=== PATIENT | male | born 1935 | race Caucasian/White ===

== ENCOUNTER 2020-01-07 11:21 | Inpatient (IN) | payer MEDICARE, OTHER ==
[~2020-01-07] VITALS: Ht 177.8 cm; Wt 121.0 kg
[~2020-01-07 11:21] MED LIST: ALBUAER17; CHOL1CAP50; DIPH25TA26; GLIM2TAB33; NEBI2.5T3; RAMI2.5C33; RANO500T2; TIOTCAP
[2020-01-07] MEDS ORDERED: FUROSEMIDE 40 MG/4 ML VIAL IV ONE (11:30)
[2020-01-07 12:03] LABS: Basophils # (auto) 0.1 10 ^3/uL (0-0.2); Basophils % (auto) 0.7 % (0.0-2.0); Eosinophils # (auto) 0.2 10 ^3/uL (0-0.8); Eosinophils % (auto) 2.7 % (0.0-7.0); Hematocrit 45.1 % (41.0-53.0); Hemoglobin 14.7 g/dL (13.5-17.5); Lymphocytes # (auto) 1.1 10 ^3/uL (0.4-5.4); Lymphocytes % (auto) 14.4 % (10.0-50.0); Mean Corpuscular Hemoglobin 31.8 pg (28.0-32.0); Mean Corpuscular Hgb Conc. 32.5 g/dL (32.0-36.0); Mean Corpuscular Volume 97.9 fL (80.0-100.0); Monocytes # (auto) 0.7 10 ^3/uL (0-1.3); Monocytes % (auto) 8.9 % (0.0-12.0); Neutrophils # (auto) 5.4 10 ^3/uL (1.6-8.6); Neutrophils % (auto) 73.3 % (37.0-80.0); Platelet Count (auto) 162 10^3/uL (140-450); Red Blood Cells 4.61 10^6/uL (4.5-5.90); Red Cell Distribution Width 14.6 % (11.8-14.3); White Blood Cell 7.3 10^3/uL (4.4-10.8)
[2020-01-07 12:18] LABS: Alanine Aminotransferase 22 U/L (16-61); Albumin 3.7 g/dL (3.4-5.0); Anion Gap 3 (5-15); Aspartate Aminotransferase 17 U/L (15-37); Blood Urea Nitrogen 33 mg/dL (7-18); Calcium 9.1 mg/dL (8.5-10.1); Carbon Dioxide 34 mmol/L (21-32); Chloride 100 mmol/L (98-107); GFR African American 58 mL/min; GFR Non-African American 48 mL/min; Glucose 121 mg/dL (74-106); Potassium 4.3 mmol/L (3.5-5.1); Sodium 137 mmol/L (136-145)
[2020-01-07 12:23] LABS: Alkaline Phosphatase 25 U/L (45-117); Bilirubin, Total 0.8 mg/dL (0.2-1.0); Total Protein 7.3 g/dL (6.4-8.2)
[2020-01-07] MEDS ORDERED: ALBUTEROL SULF 2.5 MG/0.5ML(0.5%) NEB SOLN NEB ONE (13:45)
[2020-01-07] MEDS ORDERED: NITROGLYCERIN 0.4 MG SL TAB SL PRN (13:45)
[2020-01-07] MEDS ORDERED: IPRATROPIUM BROM 0.5 MG/2.5ML INH SOL NEB ONE (13:45)
[2020-01-07] MEDS ORDERED: MORPHINE SULF INJ 2 MG/ML SYRINGE 1ML IV PRN (13:45)
[2020-01-07] MEDS ORDERED: DEXTROSE (50%) 50ML SYRG IV PRN (13:45)
[2020-01-07 14:54] VITALS: BP 124/65
--- NOTE | 2020-01-07 14:55 | NUR ---
Telemetry admit from ER KEYON SHAY admitted to Telemetry unit after SBAR received. Patient oriented to Elizabeth Peralta RN primary RN, unit, room, bed, and unit policies regarding patient care and visiting hours. Patient now on continuous telemetry monitoring, tele box #54 and telemetry reading on arrival to unit is SR Patient placed on bedside oxygen at 3LPM via nasal cannula, weighed by bedscale and encouraged to call if they need something. All questions and concerns addressed, patient verbalized understanding. Patient is alert and oriented. SOB with exertion. No reports of pain. Bed is low, locked with 2x side rails up. Call light is within reach. Will continue to monitor Q1hr and PRN.
[2020-01-07 15:01] LABS: Urine Bacteria NONE SEEN /hpf (None Seen); Urine Blood Negative /uL (Negative); Urine Hyaline Cast FEW /lpf (0 - 2); Urine Specific Gravity 1.008 (1.001-1.035); Urine WBC 1 /hpf (0 - 3)
[2020-01-07 15:04] VITALS: BP 124/65
[2020-01-07] MEDS ORDERED: OPTISON 3ml Vial for INJ IV ONE (15:56)
[2020-01-07 17:00] VITALS: BP 122/63
[2020-01-07] MEDS ORDERED: SITA100T7 PO (17:52)
[2020-01-07] MEDS ORDERED: METF-370 PO (17:52)
[2020-01-07] MEDS: ACCU-CHEK COMFORT CURVE STRIP VI SCH (18:00)
[2020-01-07] MEDS: InsuLIN REG 1unit/0.01ml Soln (100units/ml) SC SCH (18:00)
--- NOTE | 2020-01-07 18:34 | NUR ---
RT NOTE PT WAS SEEN BY RT FOR HHN TX. PT TOLERATES WELL VIA MOUTH PIECE. NO ADVERSE REACTION NOTED. CONT ORDERED Addendum: 01/07/20 at 2224 by Jackelyn Lea RT Amended: Links added.
[2020-01-07] MEDS: IPRATROPIUM BROM 0.5 MG/2.5ML INH SOL NEB SCH (18:52)
[2020-01-07] MEDS: ALBUTEROL SULF 2.5 MG/0.5ML(0.5%) NEB SOLN NEB SCH (18:52)
--- NOTE | 2020-01-07 19:30 | NUR ---
Opening Shift Note Assumed care of patient, awake and alert. Patient on O2 at 3 LPM with oxygen saturation of 92%, no complains of pain. Instructed on POC and to call for assist PRN, will continue to monitor for changes Q1hr and PRN.
[2020-01-07] MEDS: ATORVASTATIN 20 MG TAB PO SCH (22:32)
[2020-01-07] MEDS: RANOLAZINE ER 500 MG TAB PO SCH (22:32)
[2020-01-07 23:04] VITALS: BP 113/69
[2020-01-08] MEDS: ACCU-CHEK COMFORT CURVE STRIP VI SCH ×4 (00:06→18:07)
[2020-01-08] MEDS: IPRATROPIUM BROM 0.5 MG/2.5ML INH SOL NEB SCH ×4 (00:52→18:23)
[2020-01-08] MEDS: ALBUTEROL SULF 2.5 MG/0.5ML(0.5%) NEB SOLN NEB SCH ×4 (00:52→18:23)
--- NOTE | 2020-01-08 01:35 | NUR ---
RT NOTE PT PLACED ON HOSPITAL OWNED CPAP # RESPIRATORY 3 WITH MED/LARGE NASAL MASK ON STATED SETTINGS OF APAP 6-15 CMH2O WITH 4L BLEED IN. NO BREAK DOWN NOTED. CPAP AND BEDSIDE POX ARE PLUGGED TO RED OUTLET. PT IS ON BEDSIDE POX #4 PER PROTOCOL. PT APPEARS TO TOLERATE WELL. HUMIDIFIER IS FILLED TO FILL LINE AND SET TO 1. PT AWARE TO CALL IF ANY CHANGES NEEDED OR CONCERNS Addendum: 01/08/20 at 0147 by Jackelyn Lea RT Amended: Links added.
--- NOTE | 2020-01-08 02:25 | NUR ---
RT NOTE ROUTINE CPAP CHECK DONE, PT IS ON HOSPITAL OWNED CPAP # RESPIRATORY 3 WITH MED/LARGE NASAL MASK ON STATED SETTINGS OF APAP 6-15 CMH2O WITH 4L BLEED IN. CPAP AND BEDSIDE POX ARE PLUGGED TO RED OUTLET. PT IS ON BEDSIDE POX #4 PER PROTOCOL. PT APPEARS TO TOLERATE WELL. HUMIDIFIER IS ADEQUATE AND SET TO 1. PT AWARE TO CALL IF ANY CHANGES NEEDED OR CONCERNS Addendum: 01/08/20 at 0258 by Jackelyn Lea RT Amended: Links added.
[2020-01-08 05:54] VITALS: BP 104/59
[2020-01-08] MEDS: InsuLIN REG 1unit/0.01ml Soln (100units/ml) SC SCH ×4 (06:46→18:00)
--- NOTE | 2020-01-08 07:28 | NUR ---
Opening Shift Note Assumed care of patient, awake and alert. Patient on O2 at 3 LPM with oxygen saturation of 96%, denies SOB, no complains of pain at this time. Instructed on POC and to call for assist PRN, Bed in low and locked position. will continue to monitor for changes Q1hr and PRN.
[2020-01-08 08:12] LABS: Calcium 9.3 mg/dL (8.5-10.1); Potassium 4.4 mmol/L (3.5-5.1)
[2020-01-08 08:15] LABS: BUN/Creatinine Ratio 23.7
[2020-01-08 09:00] VITALS: BP 106/54
[2020-01-08] MEDS: POTASSIUM CHL 10 Meq TABLET PO SCH (09:55)
[2020-01-08] MEDS: RANOLAZINE ER 500 MG TAB PO SCH ×2 (09:55→22:06)
[2020-01-08] MEDS: ASPirin 81 mg TAB PO SCH (09:55)
[2020-01-08] MEDS ORDERED: FUROSEMIDE 40 MG/4 ML VIAL IV SCH (10:00)
[2020-01-08] MEDS: BYSTOLIC 2.5 MG PO SCH (10:00)
[2020-01-08] MEDS: RAMIPRIL 2.5 MG CAP PO SCH (10:03)
[2020-01-08] MEDS: PANTOPRAZOLE 40 MG TAB PO SCH (10:04)
[2020-01-08] MEDS: ENOXAPARIN SOD 40 MG/0.4 ML SYRINGE SC SCH (10:05)
[2020-01-08 13:00] VITALS: BP 139/64
[2020-01-08 16:51] VITALS: BP 90/39
[2020-01-08] MEDS: SPIRONOLACTONE 25 MG TAB PO SCH (18:01)
[2020-01-08] MEDS: FUROSEMIDE 40 MG/4 ML VIAL IV SCH (18:07)
--- NOTE | 2020-01-08 18:26 | NUR ---
RT NOTE PT WAS SEEN BY RT FOR HHN TX. PT TOLERATES WELL VIA MOUTHPIECE. NO ADVERSE REACTION NOTED. CONT ORDERED Addendum: 01/08/20 at 1935 by Jackelyn Lea RT Amended: Links added.
--- NOTE | 2020-01-08 19:30 | NUR ---
Opening Shift Note Assumed care of patient, awake and alert. No S/S of distress/SOB or pain. Safety measures in place, bed in lowest position, bed rails raised x2, call light within reach. Instructed on POC and to call for assist PRN, will continue to monitor for changes Q1hr and PRN.
--- NOTE | 2020-01-08 22:00 | NUR ---
RT NOTE PT PLACED ON HOSPITAL OWNED CPAP # RESPIRATORY 3 WITH MED/LARGE NASAL MASK ON STATED SETTINGS OF APAP 6-15 CMH2O WITH 4L BLEED IN. NO BREAK DOWN NOTED. CPAP AND BEDSIDE POX ARE PLUGGED TO RED OUTLET. PT IS ON BEDSIDE POX #4 PER PROTOCOL. PT APPEARS TO TOLERATE WELL. HUMIDIFIER IS FILLED TO FILL LINE AND SET TO 1. PT AWARE TO CALL IF ANY CHANGES NEEDED OR CONCERNS Addendum: 01/08/20 at 4623 by Jackelyn Lea RT Amended: Links added.
[2020-01-08] MEDS: ATORVASTATIN 20 MG TAB PO SCH (22:06)
[2020-01-09] MEDS: ACCU-CHEK COMFORT CURVE STRIP VI SCH ×5 (00:12→23:39)
--- NOTE | 2020-01-09 00:20 | NUR ---
RT NOTE ROUTINE CPAP CHECK DONE. PT IS ON HOSPITAL OWNED CPAP # RESPIRATORY 3 WITH MED/LARGE NASAL MASK ON STATED SETTINGS OF APAP 6-15 CMH2O WITH 4L BLEED IN. NO BREAK DOWN NOTED. CPAP AND BEDSIDE POX ARE PLUGGED TO RED OUTLET. PT IS ON BEDSIDE POX #4 PER PROTOCOL. PT APPEARS TO TOLERATE WELL. HUMIDIFIER IS ADEQUATE AND SET TO 1. INLINE HHN TX GIVEN WITH 2.5 MG ALBUTEROL AND 0.5 MG ATROVENT WITHOUT ADVERSE REACTION NOTED. PT AWARE TO CALL IF ANY CHANGES NEEDED OR CONCERNS Addendum: 01/09/20 at 0054 by Jackelyn Lea RT Amended: Links added.
[2020-01-09] MEDS: ALBUTEROL SULF 2.5 MG/0.5ML(0.5%) NEB SOLN NEB SCH ×4 (00:23→19:45)
[2020-01-09] MEDS: IPRATROPIUM BROM 0.5 MG/2.5ML INH SOL NEB SCH ×4 (00:23→19:45)
--- NOTE | 2020-01-09 02:12 | NUR ---
RT NOTE ROUTINE CPAP CHECK DONE. PT IS ON HOSPITAL OWNED CPAP # RESPIRATORY 3 WITH MED/LARGE NASAL MASK ON STATED SETTINGS OF APAP 6-15 CMH2O WITH 4L BLEED IN. NO BREAK DOWN NOTED. CPAP AND BEDSIDE POX ARE PLUGGED TO RED OUTLET. PT IS ON BEDSIDE POX #4 PER PROTOCOL. PT APPEARS TO TOLERATE WELL. HUMIDIFIER IS ADEQUATE AND SET TO 1. Addendum: 01/09/20 at 0233 by Jackelyn Lea RT Amended: Links added.
[2020-01-09 05:00] VITALS: BP 99/58
[2020-01-09] MEDS: InsuLIN REG 1unit/0.01ml Soln (100units/ml) SC SCH ×5 (05:35→23:39)
[2020-01-09] MEDS: SPIRONOLACTONE 25 MG TAB PO SCH ×2 (05:42→17:55)
[2020-01-09] MEDS: FUROSEMIDE 40 MG/4 ML VIAL IV SCH ×2 (05:44→17:55)
--- NOTE | 2020-01-09 07:30 | NUR ---
Opening Shift Note Assumed care of patient, who is alert and oriented x4. On oxygen at 3LPM via nasal cannula with O2 saturations at 95%. No S/S of distress/SOB or pain. Noted +2 pitting edema to BLE. Bed is low, locked with 2x side rails up. Call light is within reach. Instructed on POC and to call for assist PRN, will continue to monitor for changes Q1hr and PRN.
[2020-01-09 07:41] LABS: Basophils # (auto) 0.1 10 ^3/uL (0-0.2); Basophils % (auto) 1.1 % (0.0-2.0); Eosinophils # (auto) 0.2 10 ^3/uL (0-0.8); Eosinophils % (auto) 3.6 % (0.0-7.0); Hematocrit 43.9 % (41.0-53.0); Hemoglobin 14.1 g/dL (13.5-17.5); Lymphocytes # (auto) 1.3 10 ^3/uL (0.4-5.4); Mean Corpuscular Hemoglobin 31.4 pg (28.0-32.0); Mean Corpuscular Hgb Conc. 32.1 g/dL (32.0-36.0); Mean Corpuscular Volume 97.9 fL (80.0-100.0); Monocytes # (auto) 0.6 10 ^3/uL (0-1.3); Monocytes % (auto) 8.8 % (0.0-12.0); Neutrophils # (auto) 4.2 10 ^3/uL (1.6-8.6); Neutrophils % (auto) 66.5 % (37.0-80.0); Nucleated Red Blood Cells % 0.1 %; Platelet Count (auto) 148 10^3/uL (140-450); Red Blood Cells 4.49 10^6/uL (4.5-5.90); Red Cell Distribution Width 14.6 % (11.8-14.3); White Blood Cell 6.4 10^3/uL (4.4-10.8)
[2020-01-09 08:13] LABS: Anion Gap 3 (5-15); Blood Urea Nitrogen 34 mg/dL (7-18); Calcium 9.5 mg/dL (8.5-10.1); Carbon Dioxide 36 mmol/L (21-32); Chloride 99 mmol/L (98-107); Glucose 113 mg/dL (74-106); Potassium 3.9 mmol/L (3.5-5.1); Sodium 138 mmol/L (136-145)
[2020-01-09 08:20] LABS: GFR African American 65 mL/min; GFR Non-African American 53 mL/min
[2020-01-09 08:45] VITALS: BP 101/56
[2020-01-09] MEDS: ENOXAPARIN SOD 40 MG/0.4 ML SYRINGE SC SCH (09:28)
[2020-01-09] MEDS: ASPirin 81 mg TAB PO SCH (09:29)
[2020-01-09] MEDS: RANOLAZINE ER 500 MG TAB PO SCH ×2 (09:29→21:28)
[2020-01-09] MEDS: DOCUSATE SOD 100 MG CAP PO SCH ×2 (09:29→21:28)
[2020-01-09] MEDS: POTASSIUM CHL 10 Meq TABLET PO SCH (09:29)
[2020-01-09] MEDS: PANTOPRAZOLE 40 MG TAB PO SCH (09:29)
[2020-01-09] MEDS: BYSTOLIC 2.5 MG PO SCH (09:30)
[2020-01-09] MEDS: RAMIPRIL 2.5 MG CAP PO SCH (09:30)
[2020-01-09 13:00] VITALS: BP 105/66
[2020-01-09 16:39] VITALS: BP 109/65
--- NOTE | 2020-01-09 17:02 | NUR ---
Dr. Lu Rounding Updating patient on POC. Patient's concerns addressed at this time. PT evaluation to be done before discharge planning to take place. Orders read back and verified. Will continue to monitor
--- NOTE | 2020-01-09 19:30 | NUR ---
Opening Shift Note Assumed care of patient, awake and alert. No S/S of distress/SOB or pain. Instructed on POC and to call for assist PRN, will continue to monitor for changes Q1hr and PRN.
[2020-01-09] MEDS: ATORVASTATIN 20 MG TAB PO SCH (21:28)
[2020-01-09] MEDS: SENNA 8.6 MG TAB PO SCH (21:29)
[2020-01-09 21:43] VITALS: BP 108/59
[2020-01-10 05:00] VITALS: BP 109/67
[2020-01-10] MEDS: InsuLIN REG 1unit/0.01ml Soln (100units/ml) SC SCH ×3 (05:42→18:12)
[2020-01-10] MEDS: ACCU-CHEK COMFORT CURVE STRIP VI SCH ×3 (05:42→18:12)
[2020-01-10] MEDS: FUROSEMIDE 40 MG/4 ML VIAL IV SCH ×2 (06:19→18:03)
[2020-01-10] MEDS: SPIRONOLACTONE 25 MG TAB PO SCH ×2 (06:20→18:04)
[2020-01-10 06:32] LABS: Basophils # (auto) 0 10 ^3/uL (0-0.2); Basophils % (auto) 0.5 % (0.0-2.0); Eosinophils # (auto) 0.3 10 ^3/uL (0-0.8); Eosinophils % (auto) 4.1 % (0.0-7.0); Hematocrit 41.3 % (41.0-53.0); Hemoglobin 13.5 g/dL (13.5-17.5); Lymphocytes # (auto) 1.7 10 ^3/uL (0.4-5.4); Lymphocytes % (auto) 23.7 % (10.0-50.0); Mean Corpuscular Hemoglobin 31.7 pg (28.0-32.0); Mean Corpuscular Hgb Conc. 32.5 g/dL (32.0-36.0); Mean Corpuscular Volume 97.5 fL (80.0-100.0); Monocytes # (auto) 0.8 10 ^3/uL (0-1.3); Monocytes % (auto) 11.1 % (0.0-12.0); Neutrophils # (auto) 4.3 10 ^3/uL (1.6-8.6); Neutrophils % (auto) 60.6 % (37.0-80.0); Platelet Count (auto) 155 10^3/uL (140-450); Red Blood Cells 4.24 10^6/uL (4.5-5.90); Red Cell Distribution Width 14.3 % (11.8-14.3)
[2020-01-10 06:41] LABS: BUN/Creatinine Ratio 24.5; Potassium 4.2 mmol/L (3.5-5.1)
--- NOTE | 2020-01-10 07:10 | NUR ---
Opening Shift Note Assumed care of patient, who is alert and oriented x4. On oxygen at 3LPM via nasal cannula. No S/S of distress/SOB or pain. Bed is low, locked with 2x side rails up. Call light is within reach. Instructed on POC and to call for assist PRN, will continue to monitor for changes Q1hr and PRN.
[2020-01-10] MEDS: IPRATROPIUM BROM 0.5 MG/2.5ML INH SOL NEB SCH ×4 (08:06→23:50)
[2020-01-10] MEDS: ALBUTEROL SULF 2.5 MG/0.5ML(0.5%) NEB SOLN NEB SCH ×4 (08:06→23:50)
[2020-01-10 08:46] VITALS: BP 110/58
[2020-01-10] MEDS: POTASSIUM CHL 10 Meq TABLET PO SCH (09:57)
[2020-01-10] MEDS: ASPirin 81 mg TAB PO SCH (09:57)
[2020-01-10] MEDS: BYSTOLIC 2.5 MG PO SCH (09:57)
[2020-01-10] MEDS: DOCUSATE SOD 100 MG CAP PO SCH ×2 (09:57→21:55)
[2020-01-10] MEDS: RANOLAZINE ER 500 MG TAB PO SCH ×2 (09:58→21:55)
[2020-01-10] MEDS: ENOXAPARIN SOD 40 MG/0.4 ML SYRINGE SC SCH (09:58)
[2020-01-10] MEDS: PANTOPRAZOLE 40 MG TAB PO SCH (09:58)
[2020-01-10] MEDS: RAMIPRIL 2.5 MG CAP PO SCH (09:59)
[2020-01-10 13:00] VITALS: BP 92/52
--- NOTE | 2020-01-10 14:34 | NUR ---
Est energy needs [id number] kcal (25-27 kcal/kg IBW 75.5kg) Est protein needs 73-91g (0.6-0.75g/kg BW 121kg, r/t elevated RFTs) will reassess prn. Addendum: 01/10/20 at [address] Amended: Links added.
--- NOTE | 2020-01-10 14:54 | NUR ---
Physical Therapy Patient ambulating in the hallway with Ga (PT). Patient is ambulating with walker and oxygen.
[2020-01-10 15:11] VITALS: BP 92/52
[2020-01-10 16:46] VITALS: BP 103/59
--- NOTE | 2020-01-10 16:55 | NUR ---
Dr. Lu rounding Discussing POC with patient. Per Dr. Lu, patient to be discharged tomorrow.
--- NOTE | 2020-01-10 19:35 | NUR ---
Opening Shift Note Assumed care of patient, awake and alert. No S/S of distress/SOB or pain. Instructed on POC and to call for assist PRN, patient verbalized understanding. Safety precaution in place, call light within reach, will continue to monitor for changes Q1hr and PRN.
[2020-01-10] MEDS: ATORVASTATIN 20 MG TAB PO SCH (21:55)
[2020-01-10] MEDS: SENNA 8.6 MG TAB PO SCH (21:55)
[2020-01-10 22:00] VITALS: BP 107/61
[2020-01-11] MEDS: ACCU-CHEK COMFORT CURVE STRIP VI SCH ×5 (00:13→23:04)
[2020-01-11 05:00] VITALS: BP 109/55
[2020-01-11] MEDS: InsuLIN REG 1unit/0.01ml Soln (100units/ml) SC SCH ×5 (06:00→23:04)
[2020-01-11] MEDS: FUROSEMIDE 40 MG/4 ML VIAL IV SCH ×2 (06:09→18:11)
[2020-01-11] MEDS: SPIRONOLACTONE 25 MG TAB PO SCH ×2 (06:09→18:11)
[2020-01-11 06:46] LABS: Basophils # (auto) 0.1 10 ^3/uL (0-0.2); Eosinophils # (auto) 0.3 10 ^3/uL (0-0.8); Eosinophils % (auto) 3.5 % (0.0-7.0); Hemoglobin 14.8 g/dL (13.5-17.5); Lymphocytes # (auto) 1.8 10 ^3/uL (0.4-5.4); Lymphocytes % (auto) 23.8 % (10.0-50.0); Mean Corpuscular Hgb Conc. 32.9 g/dL (32.0-36.0); Mean Corpuscular Volume 97.2 fL (80.0-100.0); Monocytes # (auto) 0.8 10 ^3/uL (0-1.3); Monocytes % (auto) 10.8 % (0.0-12.0); Neutrophils # (auto) 4.5 10 ^3/uL (1.6-8.6); Neutrophils % (auto) 60.9 % (37.0-80.0); Nucleated Red Blood Cells % 0.1 %; Platelet Count (auto) 164 10^3/uL (140-450); Red Blood Cells 4.63 10^6/uL (4.5-5.90); Red Cell Distribution Width 14.2 % (11.8-14.3); White Blood Cell 7.4 10^3/uL (4.4-10.8)
--- NOTE | 2020-01-11 07:12 | NUR ---
OPENING SHIFT NOTE Assumed care of patient from shift nurse manager RN. Patient is alert and oriented x4, no signs of distress noted, patient denies pain. Patient was updated on the plan of care and verbalized understanding. He is receiving oxygen at 3l/min via nasal canula, saturation 95%. Bed is locked, in the lowest position, side rails up x2 and call light is in reach. Patient was encouraged to call for assistance as needed.
[2020-01-11 07:13] LABS: Calcium 9.7 mg/dL (8.5-10.1); Potassium 4.4 mmol/L (3.5-5.1)
[2020-01-11 07:17] LABS: BUN/Creatinine Ratio 21.9
[2020-01-11] MEDS: ALBUTEROL SULF 2.5 MG/0.5ML(0.5%) NEB SOLN NEB SCH ×3 (07:40→19:27)
[2020-01-11] MEDS: IPRATROPIUM BROM 0.5 MG/2.5ML INH SOL NEB SCH ×3 (07:40→19:27)
[2020-01-11 09:00] VITALS: BP 106/73
[2020-01-11] MEDS: ASPirin 81 mg TAB PO SCH (09:50)
[2020-01-11] MEDS: DOCUSATE SOD 100 MG CAP PO SCH ×2 (09:51→21:34)
[2020-01-11] MEDS: RAMIPRIL 2.5 MG CAP PO SCH (09:51)
[2020-01-11] MEDS: ENOXAPARIN SOD 40 MG/0.4 ML SYRINGE SC SCH (09:52)
[2020-01-11] MEDS: RANOLAZINE ER 500 MG TAB PO SCH ×2 (09:52→21:34)
[2020-01-11] MEDS: POTASSIUM CHL 10 Meq TABLET PO SCH (09:52)
[2020-01-11] MEDS: PANTOPRAZOLE 40 MG TAB PO SCH (09:52)
[2020-01-11] MEDS: BYSTOLIC 2.5 MG PO SCH (09:53)
[2020-01-11 13:00] VITALS: BP 107/64
--- NOTE | 2020-01-11 14:50 | NUR ---
DORITA AT BEDSIDE updated on the patient status. Plan of care was discussed with the patient and he verbalized understanding. No new orders received.
--- NOTE | 2020-01-11 16:47 | NUR ---
LUIS AT BEDSIDE Updated on patient status, plan of care discussed with the patient and he verbalized understanding. Luis to order [employer] Life vest.
[2020-01-11 17:00] VITALS: BP 113/64
--- NOTE | 2020-01-11 17:05 | NUR ---
CALL FROM ADRIANA Sanchez called for [employer] life vest. Will fax order, h+p, face sheet, echo report and consultation to .
--- NOTE | 2020-01-11 17:45 | NUR ---
FAX SENT TO [employer]
--- NOTE | 2020-01-11 19:10 | NUR ---
Opening Shift Note Assumed care of patient, awake and alert. No S/S of distress/SOB or pain. Respirations clear, equal and unlabored. Instructed on POC and to call for assist PRN, will continue to monitor for changes Q1hr and PRN. Bed locked in lowest position, HOB elevated at least 30 degrees, side rails up x 2 and call light is within each.
[2020-01-11] MEDS: SENNA 8.6 MG TAB PO SCH (21:28)
[2020-01-11] MEDS: CARVEDILOL 3.125 MG TAB PO SCH (21:28)
[2020-01-11] MEDS: ATORVASTATIN 20 MG TAB PO SCH (21:30)
[2020-01-11 22:00] VITALS: BP 129/72
[2020-01-12] MEDS: IPRATROPIUM BROM 0.5 MG/2.5ML INH SOL NEB SCH ×5 (00:26→19:12)
[2020-01-12] MEDS: ALBUTEROL SULF 2.5 MG/0.5ML(0.5%) NEB SOLN NEB SCH ×5 (00:26→19:12)
[2020-01-12] MEDS: FUROSEMIDE 40 MG/4 ML VIAL IV SCH ×2 (05:17→17:38)
[2020-01-12] MEDS: SPIRONOLACTONE 25 MG TAB PO SCH ×2 (05:18→17:38)
[2020-01-12] MEDS: ACCU-CHEK COMFORT CURVE STRIP VI SCH ×4 (05:43→23:48)
[2020-01-12] MEDS: InsuLIN REG 1unit/0.01ml Soln (100units/ml) SC SCH ×4 (05:43→23:49)
[2020-01-12 05:46] VITALS: BP 100/60
[2020-01-12 05:53] LABS: Basophils # (auto) 0 10 ^3/uL (0-0.2); Basophils % (auto) 0.6 % (0.0-2.0); Eosinophils # (auto) 0.3 10 ^3/uL (0-0.8); Eosinophils % (auto) 4.2 % (0.0-7.0); Hematocrit 42.4 % (41.0-53.0); Hemoglobin 14.1 g/dL (13.5-17.5); Lymphocytes # (auto) 1.6 10 ^3/uL (0.4-5.4); Lymphocytes % (auto) 22.3 % (10.0-50.0); Mean Corpuscular Hemoglobin 32.2 pg (28.0-32.0); Mean Corpuscular Hgb Conc. 33.3 g/dL (32.0-36.0); Mean Corpuscular Volume 96.6 fL (80.0-100.0); Monocytes # (auto) 0.8 10 ^3/uL (0-1.3); Monocytes % (auto) 11.6 % (0.0-12.0); Neutrophils # (auto) 4.3 10 ^3/uL (1.6-8.6); Neutrophils % (auto) 61.3 % (37.0-80.0); Nucleated Red Blood Cells % 0.1 %; Platelet Count (auto) 161 10^3/uL (140-450); Red Blood Cells 4.38 10^6/uL (4.5-5.90); Red Cell Distribution Width 14.5 % (11.8-14.3)
[2020-01-12 06:07] LABS: INR 1.29 (0.9-1.15)
[2020-01-12 06:09] LABS: Calcium 9.6 mg/dL (8.5-10.1)
[2020-01-12 06:12] LABS: BUN/Creatinine Ratio 24.1
--- NOTE | 2020-01-12 07:26 | NUR ---
CLOSING SHIFT NOTE ENDORSED CARE TO DAY SHIFT RN
[2020-01-12 08:00] VITALS: BP 102/57
[2020-01-12 09:00] VITALS: BP 102/57
[2020-01-12] MEDS: ASPirin 81 mg TAB PO SCH (09:49)
[2020-01-12] MEDS: CARVEDILOL 3.125 MG TAB PO SCH ×2 (09:50→21:40)
[2020-01-12] MEDS: BYSTOLIC 2.5 MG PO SCH (09:50)
[2020-01-12] MEDS: DOCUSATE SOD 100 MG CAP PO SCH ×2 (09:50→21:39)
[2020-01-12] MEDS: PANTOPRAZOLE 40 MG TAB PO SCH (09:51)
[2020-01-12] MEDS: POTASSIUM CHL 10 Meq TABLET PO SCH (09:51)
[2020-01-12] MEDS: ENOXAPARIN SOD 40 MG/0.4 ML SYRINGE SC SCH (09:52)
[2020-01-12] MEDS: RANOLAZINE ER 500 MG TAB PO SCH ×2 (09:52→21:40)
[2020-01-12 13:00] VITALS: BP 123/60
[2020-01-12 17:00] VITALS: BP 99/56
[2020-01-12] MEDS: SACUBITRIL-VALSARTAN 24mg/26mg TAB PO SCH (21:40)
[2020-01-12] MEDS: ATORVASTATIN 20 MG TAB PO SCH (21:40)
[2020-01-12] MEDS: SENNA 8.6 MG TAB PO SCH (21:41)
[2020-01-12 22:00] VITALS: BP 118/59
--- NOTE | 2020-01-12 23:09 | NUR ---
1899 OBTAINED REPORT AND ASSUMED CARE. PATIENT MET IN HIS ROOM SITTING N HIS BED. DENIED PAIN. 2139. LIVE VEST BROUGHT TO HIS ROOM BY A CORRECTIONAL SUPERVISOR DEMONSTRATED TO PATIENT HOW TO WEAR THE VEST AND AND USE IT. PATIENT VERBALIZED UNDERSTANDING. HE HAS THE VEST ON AT THIS TIME RECOMMENDED..
[2020-01-13] MEDS: ALBUTEROL SULF 2.5 MG/0.5ML(0.5%) NEB SOLN NEB SCH ×2 (01:10→12:30)
[2020-01-13] MEDS: IPRATROPIUM BROM 0.5 MG/2.5ML INH SOL NEB SCH ×2 (01:10→12:30)
--- NOTE | 2020-01-13 04:09 | NUR ---
PATIENT SLEEPING AT THIS TIME.
[2020-01-13 05:00] VITALS: BP 96/55
[2020-01-13] MEDS: InsuLIN REG 1unit/0.01ml Soln (100units/ml) SC SCH (05:48)
[2020-01-13] MEDS: FUROSEMIDE 40 MG/4 ML VIAL IV SCH (05:48)
[2020-01-13] MEDS: SPIRONOLACTONE 25 MG TAB PO SCH (05:48)
[2020-01-13] MEDS: ACCU-CHEK COMFORT CURVE STRIP VI SCH (05:48)
--- NOTE | 2020-01-13 07:09 | NUR ---
Respiratory note: Received pt from [employer] shift supervisor RT, pt already off CPAP. Pt said he took it off a few minutes ago. HR 83, RR 18, SPO2 96% on 3lpm nasal cannula. Scheduled 0600 medneb tx administered at this time, with no adverse reactions. No s/s of distress noted. Pt aware to call for RT if needed.
[2020-01-13 07:30] LABS: Basophils # (auto) 0.1 10 ^3/uL (0-0.2); Basophils % (auto) 0.8 % (0.0-2.0); Eosinophils # (auto) 0.3 10 ^3/uL (0-0.8); Eosinophils % (auto) 3.4 % (0.0-7.0); Hemoglobin 14.4 g/dL (13.5-17.5); Lymphocytes # (auto) 1.7 10 ^3/uL (0.4-5.4); Lymphocytes % (auto) 17.7 % (10.0-50.0); Mean Corpuscular Hemoglobin 31.5 pg (28.0-32.0); Mean Corpuscular Hgb Conc. 32.7 g/dL (32.0-36.0); Mean Corpuscular Volume 96.6 fL (80.0-100.0); Monocytes # (auto) 1.1 10 ^3/uL (0-1.3); Monocytes % (auto) 11.2 % (0.0-12.0); Neutrophils # (auto) 6.3 10 ^3/uL (1.6-8.6); Neutrophils % (auto) 66.9 % (37.0-80.0); Platelet Count (auto) 186 10^3/uL (140-450); Red Blood Cells 4.56 10^6/uL (4.5-5.90); Red Cell Distribution Width 14.3 % (11.8-14.3); White Blood Cell 9.4 10^3/uL (4.4-10.8)
--- NOTE | 2020-01-13 07:40 | NUR ---
Opening Note Assumed pt care from NOC RN. Pt is a/ox4 with no s/s of distress or SOB. Pt is currently sitting upright in bed with no complaints at this time. Pt is currently on 2L via NC. Pt currently has Zoll Vest on. Discussed POC with pt; pt verbalized understanding. Safety measures maintained with call light within reach, bed in lowest position and side rails up. Will continue to monitor for changes.
[2020-01-13 07:44] LABS: BUN/Creatinine Ratio 24.2; Calcium 9.4 mg/dL (8.5-10.1)
[2020-01-13 08:41] VITALS: BP 105/45
[2020-01-13] MEDS: SACUBITRIL-VALSARTAN 24mg/26mg TAB PO SCH (09:10)
[2020-01-13] MEDS: POTASSIUM CHL 10 Meq TABLET PO SCH (09:10)
[2020-01-13] MEDS: ASPirin 81 mg TAB PO SCH (09:10)
[2020-01-13] MEDS: DOCUSATE SOD 100 MG CAP PO SCH (09:10)
[2020-01-13] MEDS: PANTOPRAZOLE 40 MG TAB PO SCH (09:10)
[2020-01-13] MEDS: RANOLAZINE ER 500 MG TAB PO SCH (09:10)
[2020-01-13] MEDS: ENOXAPARIN SOD 40 MG/0.4 ML SYRINGE SC SCH (09:11)
[2020-01-13] MEDS: BYSTOLIC 2.5 MG PO SCH (09:12)
[2020-01-13] MEDS: CARVEDILOL 3.125 MG TAB PO SCH (09:12)
--- NOTE | 2020-01-13 10:05 | NUR ---
Dr Lu at Bedside MD to see pt. Plans to d/c pt home today. Will implement and continue to monitor.
--- NOTE | 2020-01-13 10:24 | NUR ---
Called in New Prescriptions Called [facility] on [address], . Three total prescriptions called in.
[2020-01-13 10:28] VITALS: BP 105/45
[2020-01-13 10:56] VITALS: BP 105/45
--- NOTE | 2020-01-13 11:04 | NUR ---
IV and tele box discontinued IV on patients left forearm discontinued, catheter was removed fully intact, site asymptomatic, dressing applied to site Tele box #54 removed and sent back to ICU staff made aware Signed: 01/13/20 at 1108 by RAMESH CORONEL <Co-Signature Required> Co-Signed: 01/13/20 at 1108 by EWA MEADOWS RN RN
--- NOTE | 2020-01-13 12:00 | NUR ---
Pt D/C'ed Off Unit Pt d/c'ed off unit via wheelchair. Pt is a/ox4 with no s/s of distress or SOB. Pt provided all education material, prescriptions, all questions were answered and pt took all belongings. IV and tele box were d/c'ed prior to d/c.
--- NOTE | 2020-01-13 13:00 | NUR ---
assessment Patient discharged home prior to being assessed. Addendum: 01/13/20 at 1501 by Nohemy BARGER Amended: Links added.
== END 2020-01-13 12:06 | disposition home or self-care (01) | DRG 291 ==
LOC: ER 11:21 → EDBD 11:21 → TELE-WESTW 11:22
PROVIDERS: ADMIT Internal Medicine; ATTEND Internal Medicine
PROC: 5A09357 Assistance with Respiratory Ventilation, Less than 24 Consecutive Hours, Continuous Positive Airway Pressure (ICD-10-PCS; principal; 2020-01-08)
PROC: 5A09357 Assistance with Respiratory Ventilation, Less than 24 Consecutive Hours, Continuous Positive Airway Pressure (ICD-10-PCS; 2020-01-09)
PROC: 5A09357 Assistance with Respiratory Ventilation, Less than 24 Consecutive Hours, Continuous Positive Airway Pressure (ICD-10-PCS; 2020-01-10)
PROC: 5A09357 Assistance with Respiratory Ventilation, Less than 24 Consecutive Hours, Continuous Positive Airway Pressure (ICD-10-PCS; 2020-01-11)
PROC: 5A09357 Assistance with Respiratory Ventilation, Less than 24 Consecutive Hours, Continuous Positive Airway Pressure (ICD-10-PCS; 2020-01-12)
PROC: 5A09357 Assistance with Respiratory Ventilation, Less than 24 Consecutive Hours, Continuous Positive Airway Pressure (ICD-10-PCS; 2020-01-13)
DX: I13.0 Hypertensive heart and chronic kidney disease with heart failure and stage 1 through stage 4 chronic kidney disease, or unspecified chronic kidney disease (principal); I50.43 Acute on chronic combined systolic (congestive) and diastolic (congestive) heart failure; N17.0 Acute kidney failure with tubular necrosis; L03.115 Cellulitis of right lower limb; J96.11 Chronic respiratory failure with hypoxia; J44.9 Chronic obstructive pulmonary disease, unspecified; N18.3 Chronic kidney disease, stage 3 (moderate); E66.01 Morbid (severe) obesity due to excess calories; I25.10 Atherosclerotic heart disease of native coronary artery without angina pectoris; E11.22 Type 2 diabetes mellitus with diabetic chronic kidney disease; E11.21 Type 2 diabetes mellitus with diabetic nephropathy; E78.5 Hyperlipidemia, unspecified; I25.2 Old myocardial infarction; Z79.84 Long term (current) use of oral hypoglycemic drugs; Z79.899 Other long term (current) drug therapy; Z83.3 Family history of diabetes mellitus; Z95.1 Presence of aortocoronary bypass graft; Z95.5 Presence of coronary angioplasty implant and graft; Z99.81 Dependence on supplemental oxygen; Z88.0 Allergy status to penicillin; Z88.8 Allergy status to other drugs, medicaments and biological substances; Z68.39 Body mass index [BMI] 39.0-39.9, adult
CPT/HCPCS: 36415; 71045; 74176; 80048; 80053; 81001; 82962; 83036; 83880; 84443; 84484; 85025; 85610; 93005; 93306; 94640; 94660; 96374; G0378; J1815; Q9956

== ENCOUNTER 2020-08-19 20:03 | Inpatient (IN) | payer MEDICARE, OTHER ==
[~2020-08-19] VITALS: Ht 182.9 cm; Wt 123.8 kg
[~2020-08-19 20:03] MED LIST changes: +METF-370 PO; +SITA100T7 PO
[2020-08-19] MEDS ORDERED: ASPirin 81 mg TAB PO ONE (20:30)
[2020-08-19 20:44] LABS: Basophils # (auto) 0.1 10 ^3/uL (0-0.2); Basophils % (auto) 1.4 % (0.0-2.0); Eosinophils # (auto) 0.4 10 ^3/uL (0-0.8); Eosinophils % (auto) 4.6 % (0.0-7.0); Hematocrit 40.3 % (41.0-53.0); Hemoglobin 13.4 g/dL (13.5-17.5); Lymphocytes # (auto) 1.8 10 ^3/uL (0.4-5.4); Lymphocytes % (auto) 19.6 % (10.0-50.0); Mean Corpuscular Hgb Conc. 33.4 g/dL (32.0-36.0); Mean Corpuscular Volume 99.1 fL (80.0-100.0); Monocytes # (auto) 0.7 10 ^3/uL (0-1.3); Monocytes % (auto) 7.9 % (0.0-12.0); Neutrophils % (auto) 66.5 % (37.0-80.0); Red Blood Cells 4.07 10^6/uL (4.5-5.90); Red Cell Distribution Width 13.3 % (11.8-14.3)
[2020-08-19 20:58] LABS: Albumin 3.8 g/dL (3.4-5.0); Anion Gap 4 (5-15); Aspartate Aminotransferase 21 U/L (15-37); BUN/Creatinine Ratio 26.9; Blood Urea Nitrogen 49 mg/dL (7-18); Calcium 9.4 mg/dL (8.5-10.1); Carbon Dioxide 30 mmol/L (21-32); Chloride 101 mmol/L (98-107); GFR African American 46 mL/min; GFR Non-African American 38 mL/min; Glucose 121 mg/dL (74-106); Magnesium 2.4 mg/dL (1.6-2.6); Potassium 4.6 mmol/L (3.5-5.1); Sodium 135 mmol/L (136-145)
[2020-08-19 21:00] LABS: INR 1.1 (0.9-1.15); Partial Thromboplastin Time 27.3 sec (23.0-31.2)
[2020-08-19 21:03] LABS: Alanine Aminotransferase 29 U/L (16-61); Alkaline Phosphatase 26 U/L (45-117); Bilirubin, Total 0.3 mg/dL (0.2-1.0); Total Protein 7.3 g/dL (6.4-8.2)
[2020-08-20] VITALS (9 sets, daily range): BP systolic 90–117; BP diastolic 30–58
[2020-08-20] MEDS ORDERED: ACETAMINOPHEN 325 MG TAB PO PRN (02:15)
[2020-08-20] MEDS ORDERED: NITROGLYCERIN 0.4 MG SL TAB SL PRN (02:15)
[2020-08-20] MEDS ORDERED: ONDANSETRON HCL 4 MG/2 ML VIAL IV PRN (02:15)
[2020-08-20] MEDS ORDERED: DOCUSATE SOD 100 MG CAP PO PRN (02:15)
[2020-08-20] MEDS ORDERED: DEXTROSE (50%) 50ML SYRG IV PRN (02:15)
[2020-08-20] MEDS ORDERED: MORPHINE SULFATE INJECTION 2 MG/ML SYRG IV PRN (02:15)
[2020-08-20] MEDS: MORPHINE SULFATE 4 MG/ML SYR/VIAL IV PRN ×3 (05:50→19:41)
[2020-08-20] MEDS ORDERED: GLIM2TAB33 PO (06:20)
[2020-08-20] MEDS ORDERED: FENO145T27 PO (06:20)
[2020-08-20] MEDS ORDERED: ALBU1.257 IN (06:20)
[2020-08-20] MEDS ORDERED: ALFU10TA33 PO (06:20)
[2020-08-20] MEDS ORDERED: SPIR25TA8 PO (06:20)
[2020-08-20] MEDS ORDERED: SACU1TAB PO (06:20)
[2020-08-20] MEDS ORDERED: CARV3.1240 PO (06:20)
[2020-08-20] MEDS ORDERED: ALLO100T PO (06:20)
[2020-08-20] MEDS ORDERED: ASPI-543 PO (06:20)
[2020-08-20] MEDS ORDERED: TIOT17SP IN (06:20)
[2020-08-20] MEDS ORDERED: FURO20TA3 PO (06:20)
[2020-08-20] MEDS: ACCU-CHEK COMFORT CURVE STRIP VI SCH ×4 (07:00→21:52)
[2020-08-20] MEDS: InsuLIN REG 1unit/0.01ml Soln (100units/ml) SC SCH ×4 (07:00→21:52)
[2020-08-20 09:09] LABS: Basophils # (auto) 0 10 ^3/uL (0-0.2); Basophils % (auto) 0.7 % (0.0-2.0); Eosinophils # (auto) 0.3 10 ^3/uL (0-0.8); Eosinophils % (auto) 5.1 % (0.0-7.0); Hematocrit 40.6 % (41.0-53.0); Hemoglobin 13.5 g/dL (13.5-17.5); Lymphocytes # (auto) 1.4 10 ^3/uL (0.4-5.4); Lymphocytes % (auto) 21.1 % (10.0-50.0); Mean Corpuscular Hemoglobin 33.2 pg (28.0-32.0); Mean Corpuscular Hgb Conc. 33.3 g/dL (32.0-36.0); Mean Corpuscular Volume 99.8 fL (80.0-100.0); Monocytes # (auto) 0.6 10 ^3/uL (0-1.3); Monocytes % (auto) 8.8 % (0.0-12.0); Neutrophils # (auto) 4.4 10 ^3/uL (1.6-8.6); Neutrophils % (auto) 64.3 % (37.0-80.0); Red Blood Cells 4.07 10^6/uL (4.5-5.90); Red Cell Distribution Width 13.5 % (11.8-14.3); White Blood Cell 6.8 10^3/uL (4.4-10.8)
[2020-08-20 09:30] LABS: Albumin 3.9 g/dL (3.4-5.0); Calcium 9.1 mg/dL (8.5-10.1); Potassium 4.9 mmol/L (3.5-5.1)
[2020-08-20 09:35] LABS: BUN/Creatinine Ratio 28.8; Bilirubin, Total 0.3 mg/dL (0.2-1.0); Total Protein 7.2 g/dL (6.4-8.2)
[2020-08-20] MEDS: FAMOTIDINE 20 MG TAB PO SCH ×2 (09:58→21:50)
[2020-08-20] MEDS: MULTIPLE VITAMIN TAB PO SCH (09:58)
[2020-08-20] MEDS: ZINC SULFATE 220mg CAP or TAB PO SCH (09:58)
[2020-08-20] MEDS: ASCORBIC ACID 500 MG TAB PO SCH ×2 (09:58→21:50)
[2020-08-20] MEDS: HEPARIN SODIUM (PORCINE) 5000 UNITS/ML 1ML VIAL SC SCH ×2 (09:59→21:56)
[2020-08-20] MEDS ORDERED: ASPirin 81 mg TAB PO SCH (10:00)
[2020-08-20] MEDS: ALBUTEROL SULF 2.5 MG/0.5ML(0.5%) NEB SOLN NEB PRN ×2 (13:28→19:09)
[2020-08-20] MEDS: FUROSEMIDE 20 MG TAB PO SCH (18:00)
[2020-08-20] MEDS: SPIRONOLACTONE 25 MG TAB PO SCH (18:00)
[2020-08-20] MEDS: BUDESONIDE (INHALATION) 0.5 MG/2 ML NEB NEB SCH (19:09)
[2020-08-20] MEDS: CARVEDILOL 3.125 MG TAB PO SCH (21:49)
[2020-08-20] MEDS: RANOLAZINE ER 500 MG TAB PO SCH (21:50)
[2020-08-21] VITALS (7 sets, daily range): BP systolic 96–112; BP diastolic 44–62
[2020-08-21] MEDS: FUROSEMIDE 20 MG TAB PO SCH ×2 (05:36→18:19)
[2020-08-21] MEDS: SPIRONOLACTONE 25 MG TAB PO SCH ×2 (05:36→18:19)
[2020-08-21] MEDS: ACCU-CHEK COMFORT CURVE STRIP VI SCH ×4 (05:41→23:12)
[2020-08-21] MEDS: InsuLIN REG 1unit/0.01ml Soln (100units/ml) SC SCH ×4 (05:47→22:48)
[2020-08-21] MEDS: HYDROcodone-ACET 5/325MG TAB PO PRN ×2 (05:49→19:26)
[2020-08-21 10:42] LABS: Basophils # (auto) 0 10 ^3/uL (0-0.2); Basophils % (auto) 0.5 % (0.0-2.0); Eosinophils # (auto) 0.3 10 ^3/uL (0-0.8); Eosinophils % (auto) 4.5 % (0.0-7.0); Hematocrit 39.6 % (41.0-53.0); Hemoglobin 13.3 g/dL (13.5-17.5); Lymphocytes # (auto) 1.2 10 ^3/uL (0.4-5.4); Lymphocytes % (auto) 17.3 % (10.0-50.0); Mean Corpuscular Hemoglobin 33.6 pg (28.0-32.0); Mean Corpuscular Hgb Conc. 33.4 g/dL (32.0-36.0); Mean Corpuscular Volume 100.4 fL (80.0-100.0); Monocytes # (auto) 0.4 10 ^3/uL (0-1.3); Monocytes % (auto) 5.8 % (0.0-12.0); Neutrophils % (auto) 71.9 % (37.0-80.0); Red Blood Cells 3.95 10^6/uL (4.5-5.90); White Blood Cell 6.9 10^3/uL (4.4-10.8)
[2020-08-21] MEDS: ZINC SULFATE 220mg CAP or TAB PO SCH (10:49)
[2020-08-21] MEDS: CARVEDILOL 3.125 MG TAB PO SCH ×2 (10:50→22:00)
[2020-08-21] MEDS: ASCORBIC ACID 500 MG TAB PO SCH ×2 (10:50→22:49)
[2020-08-21] MEDS: RANOLAZINE ER 500 MG TAB PO SCH ×2 (10:50→22:49)
[2020-08-21] MEDS: SACUBITRIL-VALSARTAN 24mg/26mg TAB PO SCH (10:50)
[2020-08-21] MEDS: FAMOTIDINE 20 MG TAB PO SCH ×2 (10:50→22:49)
[2020-08-21] MEDS: MULTIPLE VITAMIN TAB PO SCH (10:50)
[2020-08-21] MEDS: ASPirin-EC 81 mg tab PO SCH (10:50)
[2020-08-21] MEDS: HEPARIN SODIUM (PORCINE) 5000 UNITS/ML 1ML VIAL SC SCH ×2 (10:51→22:50)
[2020-08-21] MEDS: ALLOPURINOL 100 MG TAB PO SCH (10:51)
[2020-08-21 10:53] LABS: Potassium 5.2 mmol/L (3.5-5.1)
[2020-08-21 11:00] LABS: Albumin 3.8 g/dL (3.4-5.0); BUN/Creatinine Ratio 28.6; Bilirubin, Total 0.4 mg/dL (0.2-1.0); Calcium 9.3 mg/dL (8.5-10.1); Total Protein 7.1 g/dL (6.4-8.2)
[2020-08-21] MEDS ORDERED: metOLazone 5 MG TAB PO ONE (11:15)
[2020-08-21] MEDS: MORPHINE SULFATE 4 MG/ML SYR/VIAL IV PRN (13:25)
[2020-08-21] MEDS: BUDESONIDE (INHALATION) 0.5 MG/2 ML NEB NEB SCH (19:42)
[2020-08-21] MEDS: ALBUTEROL SULF 2.5 MG/0.5ML(0.5%) NEB SOLN NEB PRN (19:42)
[2020-08-22] VITALS (7 sets, daily range): BP systolic 99–139; BP diastolic 41–71
[2020-08-22] MEDS: MORPHINE SULFATE 4 MG/ML SYR/VIAL IV PRN (04:33)
[2020-08-22] MEDS: FUROSEMIDE 20 MG TAB PO SCH ×2 (06:00→18:57)
[2020-08-22] MEDS: SPIRONOLACTONE 25 MG TAB PO SCH ×2 (06:00→18:55)
[2020-08-22] MEDS: InsuLIN REG 1unit/0.01ml Soln (100units/ml) SC SCH ×4 (06:29→21:32)
[2020-08-22] MEDS: ACCU-CHEK COMFORT CURVE STRIP VI SCH ×4 (06:29→21:32)
[2020-08-22] MEDS: ALBUTEROL SULF 2.5 MG/0.5ML(0.5%) NEB SOLN NEB PRN ×2 (07:43→19:20)
[2020-08-22] MEDS: BUDESONIDE (INHALATION) 0.5 MG/2 ML NEB NEB SCH ×2 (07:44→19:20)
[2020-08-22] MEDS ORDERED: ADENOSINE 104 MG in GIVE UN-DILUTED 0 ML IV STA (08:30)
[2020-08-22] MEDS: CARVEDILOL 3.125 MG TAB PO SCH ×2 (10:00→22:00)
[2020-08-22] MEDS: ASPirin-EC 81 mg tab PO SCH (10:42)
[2020-08-22] MEDS: ZINC SULFATE 220mg CAP or TAB PO SCH (10:42)
[2020-08-22] MEDS: MULTIPLE VITAMIN TAB PO SCH (10:43)
[2020-08-22] MEDS: SACUBITRIL-VALSARTAN 24mg/26mg TAB PO SCH (10:43)
[2020-08-22] MEDS: FAMOTIDINE 20 MG TAB PO SCH ×2 (10:43→21:30)
[2020-08-22] MEDS: RANOLAZINE ER 500 MG TAB PO SCH ×2 (10:43→21:29)
[2020-08-22] MEDS: ASCORBIC ACID 500 MG TAB PO SCH ×2 (10:44→21:30)
[2020-08-22] MEDS: ALLOPURINOL 100 MG TAB PO SCH (10:44)
[2020-08-22] MEDS ORDERED: metOLazone 5 MG TAB PO ONE (10:45)
[2020-08-22] MEDS: HEPARIN SODIUM (PORCINE) 5000 UNITS/ML 1ML VIAL SC SCH ×2 (10:45→21:32)
[2020-08-22] MEDS: HYDROcodone-ACET 5/325MG TAB PO PRN ×2 (12:07→21:34)
[2020-08-23 05:00] VITALS: BP_SYST 105; BP_SYST 149; BP_DIAS 42; BP_DIAS 84
[2020-08-23] MEDS: SPIRONOLACTONE 25 MG TAB PO SCH (05:22)
[2020-08-23] MEDS: ACCU-CHEK COMFORT CURVE STRIP VI SCH ×2 (05:23→11:42)
[2020-08-23] MEDS: FUROSEMIDE 20 MG TAB PO SCH (05:23)
[2020-08-23] MEDS: InsuLIN REG 1unit/0.01ml Soln (100units/ml) SC SCH ×2 (05:29→11:30)
[2020-08-23] MEDS: BUDESONIDE (INHALATION) 0.5 MG/2 ML NEB NEB SCH (07:03)
[2020-08-23] MEDS: ALBUTEROL SULF 2.5 MG/0.5ML(0.5%) NEB SOLN NEB PRN (07:03)
[2020-08-23 07:10] LABS: Basophils # (auto) 0.1 10 ^3/uL (0-0.2); Eosinophils # (auto) 0.3 10 ^3/uL (0-0.8); Eosinophils % (auto) 4.2 % (0.0-7.0); Hematocrit 39.4 % (41.0-53.0); Hemoglobin 13.5 g/dL (13.5-17.5); Lymphocytes # (auto) 1.2 10 ^3/uL (0.4-5.4); Lymphocytes % (auto) 14.9 % (10.0-50.0); Mean Corpuscular Hemoglobin 33.7 pg (28.0-32.0); Mean Corpuscular Hgb Conc. 34.2 g/dL (32.0-36.0); Mean Corpuscular Volume 98.6 fL (80.0-100.0); Monocytes # (auto) 0.8 10 ^3/uL (0-1.3); Monocytes % (auto) 10.3 % (0.0-12.0); Neutrophils # (auto) 5.5 10 ^3/uL (1.6-8.6); Neutrophils % (auto) 69.6 % (37.0-80.0); Red Blood Cells 3.99 10^6/uL (4.5-5.90); Red Cell Distribution Width 13.1 % (11.8-14.3); White Blood Cell 7.9 10^3/uL (4.4-10.8)
[2020-08-23 07:29] LABS: BUN/Creatinine Ratio 25.4; Calcium 9.1 mg/dL (8.5-10.1); Potassium 4.9 mmol/L (3.5-5.1)
[2020-08-23 08:51] VITALS: BP 113/56
[2020-08-23] MEDS: SACUBITRIL-VALSARTAN 24mg/26mg TAB PO SCH (08:58)
[2020-08-23] MEDS: HEPARIN SODIUM (PORCINE) 5000 UNITS/ML 1ML VIAL SC SCH (08:58)
[2020-08-23] MEDS: FAMOTIDINE 20 MG TAB PO SCH (08:58)
[2020-08-23] MEDS: ASPirin-EC 81 mg tab PO SCH (09:00)
[2020-08-23] MEDS: RANOLAZINE ER 500 MG TAB PO SCH (09:00)
[2020-08-23] MEDS: HYDROcodone-ACET 5/325MG TAB PO PRN (09:00)
[2020-08-23] MEDS: ALLOPURINOL 100 MG TAB PO SCH (09:01)
[2020-08-23] MEDS: ASCORBIC ACID 500 MG TAB PO SCH (09:01)
[2020-08-23] MEDS: MULTIPLE VITAMIN TAB PO SCH (09:01)
[2020-08-23] MEDS: ZINC SULFATE 220mg CAP or TAB PO SCH (09:01)
[2020-08-23] MEDS: CARVEDILOL 3.125 MG TAB PO SCH (10:00)
[2020-08-23 11:48] VITALS: BP 114/48
[2020-08-23 13:00] VITALS: BP 123/52
== END 2020-08-23 13:20 | disposition home or self-care (01) | DRG 303 ==
LOC: ER 20:03 → EDBD 20:03 → EDUNIT# 20:03 → TELE 08-20 02:12 → TELE-WESTW 08-20 04:20
PROVIDERS: ADMIT Nurse Practitioner Family; ATTEND Internal Medicine
PROC: 5A09357 Assistance with Respiratory Ventilation, Less than 24 Consecutive Hours, Continuous Positive Airway Pressure (ICD-10-PCS; principal; 2020-08-20)
PROC: 5A09357 Assistance with Respiratory Ventilation, Less than 24 Consecutive Hours, Continuous Positive Airway Pressure (ICD-10-PCS; 2020-08-21)
PROC: 5A09357 Assistance with Respiratory Ventilation, Less than 24 Consecutive Hours, Continuous Positive Airway Pressure (ICD-10-PCS; 2020-08-22)
DX: I25.10 Atherosclerotic heart disease of native coronary artery without angina pectoris (principal); I13.0 Hypertensive heart and chronic kidney disease with heart failure and stage 1 through stage 4 chronic kidney disease, or unspecified chronic kidney disease; I50.42 Chronic combined systolic (congestive) and diastolic (congestive) heart failure; J96.11 Chronic respiratory failure with hypoxia; E87.1 Hypo-osmolality and hyponatremia; Z20.822 Contact with and (suspected) exposure to COVID-19; N18.31 Chronic kidney disease, stage 3a; E11.22 Type 2 diabetes mellitus with diabetic chronic kidney disease; E78.5 Hyperlipidemia, unspecified; J44.9 Chronic obstructive pulmonary disease, unspecified; I25.2 Old myocardial infarction; E66.01 Morbid (severe) obesity due to excess calories; G47.30 Sleep apnea, unspecified; E11.65 Type 2 diabetes mellitus with hyperglycemia; Z88.0 Allergy status to penicillin; Z88.2 Allergy status to sulfonamides; Z88.8 Allergy status to other drugs, medicaments and biological substances; Z68.33 Body mass index [BMI] 33.0-33.9, adult; Z82.49 Family history of ischemic heart disease and other diseases of the circulatory system; Z83.3 Family history of diabetes mellitus; Z87.01 Personal history of pneumonia (recurrent); Z95.1 Presence of aortocoronary bypass graft; Z95.5 Presence of coronary angioplasty implant and graft
CPT/HCPCS: 36415; 71045; 78452; 80048; 80053; 82962; 83036; 83735; 83880; 84443; 84484; 85025; 85610; 85730; 87426; 93005; 93017; 93306; 94640; 94660; 94762; G0378; J0153; J1815

== ENCOUNTER 2021-06-21 12:21 | Inpatient (IN) | payer MEDICARE, BC ==
[~2021-06-21] VITALS: Ht 180.3 cm; Wt 127.3 kg
[~2021-06-21 12:21] MED LIST changes: +ALBU1.257 IN; -ALBUAER17; +ALFU10TA33 PO; +ALLO100T PO; +ASPI-543 PO; +CARV3.1240 PO; -CHOL1CAP50; -DIPH25TA26; +FENO145T27 PO; +FURO20TA3 PO; -GLIM2TAB33; +GLIM2TAB33 PO; -NEBI2.5T3; -RAMI2.5C33; +SACU1TAB PO; +SPIR25TA8 PO; +TIOT17SP IN; -TIOTCAP
[2021-06-21 14:08] LABS: Basophils # (auto) 0 10 ^3/uL (0-0.2); Basophils % (auto) 0.7 % (0.0-2.0); Eosinophils # (auto) 0.3 10 ^3/uL (0-0.8); Eosinophils % (auto) 4.2 % (0.0-7.0); Hematocrit 39.9 % (41.0-53.0); Hemoglobin 13.2 g/dL (13.5-17.5); Lymphocytes % (auto) 15.1 % (10.0-50.0); Mean Corpuscular Hemoglobin 32.5 pg (28.0-32.0); Mean Corpuscular Hgb Conc. 33.1 g/dL (32.0-36.0); Mean Corpuscular Volume 98.1 fL (80.0-100.0); Monocytes # (auto) 0.4 10 ^3/uL (0-1.3); Neutrophils # (auto) 4.6 10 ^3/uL (1.6-8.6); Nucleated Red Blood Cells % 0.1 %; Red Blood Cells 4.06 10^6/uL (4.5-5.90); Red Cell Distribution Width 13.4 % (11.8-14.3); White Blood Cell 6.3 10^3/uL (4.4-10.8)
[2021-06-21 14:23] LABS: Potassium 5.5 mmol/L (3.5-5.1)
[2021-06-21 14:33] LABS: Albumin 3.8 g/dL (3.4-5.0); BUN/Creatinine Ratio 29.6; Bilirubin, Total 0.4 mg/dL (0.2-1.0); Calcium 9.3 mg/dL (8.5-10.1)
[2021-06-21] MEDS ORDERED: CEFEPIME 2 GM in SODIUM CHL 0.9% 50 ML IV ONE (19:30)
[2021-06-21] MEDS ORDERED: levoFLOXacin 500MG 100 ML IV ONE (19:30)
[2021-06-21] MEDS ORDERED: NITROGLYCERIN 0.4 MG SL TAB SL PRN (22:15)
[2021-06-21] MEDS ORDERED: ONDANSETRON HCL 4 MG/2 ML VIAL IV PRN (22:15)
[2021-06-21] MEDS ORDERED: TEMAZEPAM 15 MG CAP PO PRN (22:15)
[2021-06-21] MEDS ORDERED: ACETAMINOPHEN 325 MG TAB PO PRN (22:15)
[2021-06-21] MEDS ORDERED: MORPHINE SULFATE INJECTION 2 MG/ML SYRG IV PRN (22:15)
[2021-06-21] MEDS ORDERED: DEXTROSE (50%) 50ML SYRG IV PRN (22:15)
[2021-06-21] MEDS ORDERED: SODIUM ZIRCONIUM CYCL 10 GM PAK PO ONE (22:15)
[2021-06-21] MEDS ORDERED: IPRATROPIUM BROM 0.5 MG/2.5ML INH SOL ONE (23:33)
[2021-06-21] MEDS ORDERED: ALBUTEROL SULF 2.5 MG/0.5ML(0.5%) NEB SOLN ONE (23:33)
[2021-06-21] MEDS ORDERED: ALBUTEROL SULF 2.5 MG/0.5ML(0.5%) NEB SOLN NEB ONE (23:50)
[2021-06-21] MEDS ORDERED: IPRATROPIUM BROM 0.5 MG/2.5ML INH SOL NEB ONE (23:50)
[2021-06-22] MEDS: InsuLIN REG 1unit/0.01ml Soln (100units/ml) SC SCH ×4 (07:21→22:00)
[2021-06-22] MEDS: ACCU-CHEK COMFORT CURVE STRIP VI SCH ×4 (07:26→22:00)
[2021-06-22 07:51] LABS: Basophils # (auto) 0 10 ^3/uL (0-0.2); Basophils % (auto) 0.6 % (0.0-2.0); Eosinophils # (auto) 0.3 10 ^3/uL (0-0.8); Eosinophils % (auto) 4.3 % (0.0-7.0); Hematocrit 38.7 % (41.0-53.0); Hemoglobin 12.9 g/dL (13.5-17.5); Lymphocytes # (auto) 1.2 10 ^3/uL (0.4-5.4); Mean Corpuscular Hemoglobin 32.6 pg (28.0-32.0); Mean Corpuscular Hgb Conc. 33.3 g/dL (32.0-36.0); Monocytes # (auto) 0.6 10 ^3/uL (0-1.3); Monocytes % (auto) 8.8 % (0.0-12.0); Neutrophils % (auto) 69.3 % (37.0-80.0); Red Blood Cells 3.94 10^6/uL (4.5-5.90); Red Cell Distribution Width 13.6 % (11.8-14.3); White Blood Cell 7.2 10^3/uL (4.4-10.8)
[2021-06-22 08:09] LABS: Albumin 3.7 g/dL (3.4-5.0); Calcium 9.3 mg/dL (8.5-10.1); Potassium 4.7 mmol/L (3.5-5.1)
[2021-06-22 08:14] LABS: BUN/Creatinine Ratio 30.5; Bilirubin, Total 0.5 mg/dL (0.2-1.0)
[2021-06-22] MEDS: ASCORBIC ACID 500 MG TAB PO SCH ×2 (08:41→23:14)
[2021-06-22] MEDS: PANTOPRAZOLE 40 MG TAB PO SCH (08:41)
[2021-06-22] MEDS: levoFLOXacin 250MG 50 ML IV SCH (08:41)
[2021-06-22] MEDS: ZINC SULFATE 220mg CAP or TAB PO SCH (08:41)
[2021-06-22] MEDS ORDERED: ASPirin 81 mg TAB PO ONE (13:00)
[2021-06-22 14:25] LABS: Urine Bacteria FEW /hpf (None Seen); Urine Blood Negative /uL (Negative); Urine Hyaline Cast FEW /lpf (0 - 2); Urine Specific Gravity 1.021 (1.001-1.035); Urine WBC 2 /hpf (0 - 3)
[2021-06-22] MEDS ORDERED: SPIRONOLACTONE 25 MG TAB PO SCH (18:00)
[2021-06-22] MEDS: FUROSEMIDE 20 MG/2 ML VIAL IV SCH (18:07)
[2021-06-22] MEDS ORDERED: SACUBITRIL-VALSARTAN 24mg/26mg TAB PO SCH (22:00)
[2021-06-22] MEDS: CARVEDILOL 3.125 MG TAB PO SCH (23:15)
[2021-06-22 23:41] VITALS: BP 137/61
[2021-06-23 04:41] VITALS: BP 104/46
[2021-06-23] MEDS: InsuLIN REG 1unit/0.01ml Soln (100units/ml) SC SCH ×4 (06:34→21:47)
[2021-06-23] MEDS: FUROSEMIDE 20 MG/2 ML VIAL IV SCH ×2 (06:40→17:10)
[2021-06-23] MEDS: ACCU-CHEK COMFORT CURVE STRIP VI SCH ×4 (06:48→21:51)
[2021-06-23 07:21] LABS: Potassium 5.1 mmol/L (3.5-5.1)
[2021-06-23 07:25] LABS: BUN/Creatinine Ratio 27.4
[2021-06-23 09:00] VITALS: BP 121/55
[2021-06-23] MEDS: PANTOPRAZOLE 40 MG TAB PO SCH (09:47)
[2021-06-23] MEDS: ALLOPURINOL 100 MG TAB PO SCH (09:47)
[2021-06-23] MEDS: ASPirin 81 mg TAB PO SCH (09:47)
[2021-06-23] MEDS: CARVEDILOL 3.125 MG TAB PO SCH ×2 (09:47→21:42)
[2021-06-23] MEDS: ASCORBIC ACID 500 MG TAB PO SCH ×2 (09:48→21:43)
[2021-06-23] MEDS: levoFLOXacin 250MG 50 ML IV SCH (11:16)
[2021-06-23] MEDS: ZINC SULFATE 220mg CAP or TAB PO SCH (11:17)
[2021-06-23 13:00] VITALS: BP 104/53
[2021-06-23 16:50] VITALS: BP 95/51
[2021-06-24 05:00] VITALS: BP 109/64
[2021-06-24 05:51] LABS: Potassium 4.7 mmol/L (3.5-5.1)
[2021-06-24 05:53] LABS: BUN/Creatinine Ratio 25.5
[2021-06-24] MEDS: FUROSEMIDE 20 MG/2 ML VIAL IV SCH (06:09)
[2021-06-24] MEDS: ALBUTEROL SULF 2.5 MG/0.5ML(0.5%) NEB SOLN NEB PRN ×2 (06:32→13:31)
[2021-06-24] MEDS: IPRATROPIUM BROM 0.5 MG/2.5ML INH SOL NEB PRN ×2 (06:32→13:32)
[2021-06-24] MEDS: InsuLIN REG 1unit/0.01ml Soln (100units/ml) SC SCH ×2 (06:55→12:34)
[2021-06-24 09:00] VITALS: BP 122/59
[2021-06-24] MEDS ORDERED: LEVO500T31 PO (09:59)
[2021-06-24] MEDS: levoFLOXacin 250MG 50 ML IV SCH (10:53)
[2021-06-24] MEDS: ZINC SULFATE 220mg CAP or TAB PO SCH (10:53)
[2021-06-24] MEDS: ASPirin 81 mg TAB PO SCH (10:53)
[2021-06-24] MEDS: PANTOPRAZOLE 40 MG TAB PO SCH (10:54)
[2021-06-24] MEDS: CARVEDILOL 3.125 MG TAB PO SCH (10:54)
[2021-06-24] MEDS: ALLOPURINOL 100 MG TAB PO SCH (10:54)
[2021-06-24] MEDS: ASCORBIC ACID 500 MG TAB PO SCH (10:54)
[2021-06-24] MEDS: ACCU-CHEK COMFORT CURVE STRIP VI SCH (11:30)
[2021-06-24 12:48] VITALS: BP 128/61
[2021-06-24 13:08] VITALS: BP 122/59
== END 2021-06-24 14:21 | disposition home or self-care (01) | DRG 193 ==
LOC: ER 12:21 → TELE 22:03 → TELE-CENTR 06-22 21:20
PROVIDERS: ADMIT Nurse Practitioner; ATTEND Family Medicine
PROC: 5A09357 Assistance with Respiratory Ventilation, Less than 24 Consecutive Hours, Continuous Positive Airway Pressure (ICD-10-PCS; principal; 2021-06-22)
PROC: 5A09357 Assistance with Respiratory Ventilation, Less than 24 Consecutive Hours, Continuous Positive Airway Pressure (ICD-10-PCS; 2021-06-23)
DX: J18.9 Pneumonia, unspecified organism (principal); J96.21 Acute and chronic respiratory failure with hypoxia; I50.43 Acute on chronic combined systolic (congestive) and diastolic (congestive) heart failure; N17.0 Acute kidney failure with tubular necrosis; I13.0 Hypertensive heart and chronic kidney disease with heart failure and stage 1 through stage 4 chronic kidney disease, or unspecified chronic kidney disease; J44.0 Chronic obstructive pulmonary disease with (acute) lower respiratory infection; J44.1 Chronic obstructive pulmonary disease with (acute) exacerbation; Z68.41 Body mass index [BMI] 40.0-44.9, adult; Z20.822 Contact with and (suspected) exposure to COVID-19; E87.5 Hyperkalemia; E66.01 Morbid (severe) obesity due to excess calories; E11.22 Type 2 diabetes mellitus with diabetic chronic kidney disease; E78.00 Pure hypercholesterolemia, unspecified; E78.5 Hyperlipidemia, unspecified; I48.91 Unspecified atrial fibrillation; I25.10 Atherosclerotic heart disease of native coronary artery without angina pectoris; M10.9 Gout, unspecified; N18.32 Chronic kidney disease, stage 3b; Z82.49 Family history of ischemic heart disease and other diseases of the circulatory system; I25.2 Old myocardial infarction; Z83.3 Family history of diabetes mellitus; Z95.1 Presence of aortocoronary bypass graft; Z88.0 Allergy status to penicillin; Z88.2 Allergy status to sulfonamides; Z88.8 Allergy status to other drugs, medicaments and biological substances
CPT/HCPCS: 36415; 71045; 76775; 80048; 80053; 81001; 82140; 82570; 82728; 82962; 83880; 84156; 84300; 84484; 85025; 85379; 87070; 87077; 87205; 87426; 87804; 93005; 94640; 94660; 96365; G0378; J1815; J1956

== ENCOUNTER 2021-07-03 12:05 | Inpatient (IN) | payer MEDICARE, BC ==
[~2021-07-03] VITALS: Ht 177.8 cm; Wt 122.5 kg
[~2021-07-03 12:05] MED LIST changes: +LEVO500T31 PO
[2021-07-03] MEDS ORDERED: SODIUM CHLORIDE 0.9% 500 ML IV ONE (12:15)
[2021-07-03 13:03] LABS: Basophils # (auto) 0.1 10 ^3/uL (0-0.2); Basophils % (auto) 0.9 % (0.0-2.0); Eosinophils # (auto) 0.1 10 ^3/uL (0-0.8); Eosinophils % (auto) 1.1 % (0.0-7.0); Hematocrit 39.9 % (41.0-53.0); Lymphocytes # (auto) 1.3 10 ^3/uL (0.4-5.4); Lymphocytes % (auto) 22.3 % (10.0-50.0); Mean Corpuscular Hemoglobin 31.6 pg (28.0-32.0); Mean Corpuscular Hgb Conc. 32.7 g/dL (32.0-36.0); Mean Corpuscular Volume 96.6 fL (80.0-100.0); Monocytes # (auto) 0.7 10 ^3/uL (0-1.3); Monocytes % (auto) 12.9 % (0.0-12.0); Neutrophils # (auto) 3.6 10 ^3/uL (1.6-8.6); Neutrophils % (auto) 62.8 % (37.0-80.0); Nucleated Red Blood Cells % 0.1 %; Red Blood Cells 4.12 10^6/uL (4.5-5.90); Red Cell Distribution Width 13.3 % (11.8-14.3); White Blood Cell 5.8 10^3/uL (4.4-10.8)
[2021-07-03 13:30] LABS: Albumin 3.3 g/dL (3.4-5.0); Magnesium 2.6 mg/dL (1.6-2.6); Potassium 4.8 mmol/L (3.5-5.1)
[2021-07-03 13:36] LABS: BUN/Creatinine Ratio 23.2; Bilirubin, Total 0.3 mg/dL (0.2-1.0)
[2021-07-03] MEDS ORDERED: ASPirin 81 mg TAB PO ONE (15:00)
[2021-07-03] MEDS ORDERED: ENOXAPARIN SOD 120 MG/0.8 ML SYRINGE SC ONE (17:30)
[2021-07-03] MEDS ORDERED: MORPHINE SULFATE INJECTION 2 MG/ML SYRG IV PRN ×3 (17:30→20:45)
[2021-07-03] MEDS ORDERED: NITROGLYCERIN 0.4 MG SL TAB SL PRN ×2 (17:30→20:45)
[2021-07-03] MEDS ORDERED: DEXTROSE (50%) 50ML SYRG IV PRN (17:30)
[2021-07-03] MEDS ORDERED: IPRATROPIUM BROM 0.5 MG/2.5ML INH SOL NEB ONE ×2 (19:00→20:30)
[2021-07-03] MEDS ORDERED: ALBUTEROL SULF 2.5 MG/0.5ML(0.5%) NEB SOLN NEB ONE (19:00)
[2021-07-03] MEDS ORDERED: ALBUTEROL SULF 2.5 MG/0.5ML(0.5%) NEB SOLN ONE (20:03)
[2021-07-03] MEDS ORDERED: IPRATROPIUM BROM 0.5 MG/2.5ML INH SOL ONE (20:04)
[2021-07-03] MEDS ORDERED: BUDESONIDE (INHALATION) 0.5 MG/2 ML NEB NEB ONE (20:30)
[2021-07-03] MEDS ORDERED: levoFLOXacin 500MG 100 ML IV ONE (20:30)
[2021-07-03] MEDS ORDERED: PANTOPRAZOLE 40 MG/10 ML VIAL INJ IV ONE (20:30)
[2021-07-03] MEDS ORDERED: methylPREDNISolone SOD SUCC 125 MG/2 ML VL IV ONE (20:30)
[2021-07-03] MEDS ORDERED: BUMETANIDE 2.5mg/10ml (0.25 mg/ml) INJ IV ONE (20:30)
[2021-07-03] MEDS ORDERED: DOCUSATE SOD 100 MG CAP PO PRN (20:45)
[2021-07-03] MEDS ORDERED: ALUM & MAG HYDROX-SIMETH LIQ(MAALOX) 30 ML PO PRN (20:45)
[2021-07-03] MEDS ORDERED: ACETAMINOPHEN 325 MG TAB PO PRN (20:45)
[2021-07-03] MEDS ORDERED: METOCLOPRAMIDE HCL 5MG/ml INJ 2ml VIAL IV PRN (20:45)
[2021-07-03] MEDS ORDERED: HYDROcodone-ACET 5/325MG TAB PO PRN (20:45)
[2021-07-03] MEDS: IPRATROPIUM BROM 0.5 MG/2.5ML INH SOL NEB SCH (23:30)
[2021-07-03] MEDS: BUDESONIDE (INHALATION) 0.5 MG/2 ML NEB NEB SCH (23:30)
[2021-07-04] MEDS: CARVEDILOL 3.125 MG TAB PO SCH ×3 (00:34→21:09)
[2021-07-04] MEDS: ATORVASTATIN 20 MG TAB PO SCH ×2 (00:34→21:08)
[2021-07-04] MEDS: ENOXAPARIN SOD 120 MG/0.8 ML SYRINGE SC SCH ×3 (00:35→10:00)
[2021-07-04] MEDS: RANOLAZINE ER 500 MG TAB PO SCH ×3 (00:35→21:08)
[2021-07-04] MEDS: InsuLIN REG 1unit/0.01ml Soln (100units/ml) SC SCH ×5 (00:49→21:00)
[2021-07-04] MEDS: ACCU-CHEK COMFORT CURVE STRIP VI SCH ×5 (00:49→21:09)
[2021-07-04] MEDS: IPRATROPIUM BROM 0.5 MG/2.5ML INH SOL NEB SCH ×6 (02:45→22:15)
[2021-07-04] MEDS: LORazepam 0.5 MG TAB PO PRN ×2 (02:53→20:40)
[2021-07-04] MEDS: BUDESONIDE (INHALATION) 0.5 MG/2 ML NEB NEB SCH ×2 (06:00→18:55)
[2021-07-04] MEDS ORDERED: BUMETANIDE 2.5mg/10ml (0.25 mg/ml) INJ IV SCH (06:00)
[2021-07-04] MEDS ORDERED: methylPREDNISolone SOD SUCC 40 MG/ML VL IV SCH (06:00)
[2021-07-04 08:29] LABS: Potassium 5.2 mmol/L (3.5-5.1)
[2021-07-04 08:30] LABS: Basophils # (auto) 0 10 ^3/uL (0-0.2); Basophils % (auto) 0.6 % (0.0-2.0); Eosinophils # (auto) 0 10 ^3/uL (0-0.8); Eosinophils % (auto) 0.2 % (0.0-7.0); Hematocrit 42.2 % (41.0-53.0); Hemoglobin 14.1 g/dL (13.5-17.5); Lymphocytes # (auto) 0.9 10 ^3/uL (0.4-5.4); Mean Corpuscular Hemoglobin 32.5 pg (28.0-32.0); Mean Corpuscular Hgb Conc. 33.5 g/dL (32.0-36.0); Mean Corpuscular Volume 97.2 fL (80.0-100.0); Monocytes # (auto) 0.1 10 ^3/uL (0-1.3); Neutrophils # (auto) 4.7 10 ^3/uL (1.6-8.6); Neutrophils % (auto) 82.2 % (37.0-80.0); Nucleated Red Blood Cells % 0.1 %; Red Blood Cells 4.34 10^6/uL (4.5-5.90); Red Cell Distribution Width 13.5 % (11.8-14.3); White Blood Cell 5.7 10^3/uL (4.4-10.8)
[2021-07-04 08:50] LABS: Albumin 3.6 g/dL (3.4-5.0); BUN/Creatinine Ratio 24.5; Bilirubin, Total 0.3 mg/dL (0.2-1.0); Magnesium 2.1 mg/dL (1.6-2.6); Phosphorus 3.4 mg/dL (2.5-4.90); Total Protein 7.6 g/dL (6.4-8.2); Uric Acid 6.8 mg/dL (3.5-7.2)
[2021-07-04 09:00] LABS: INR 1.27 (0.9-1.15); Partial Thromboplastin Time 36.7 sec (23.6-33.0)
[2021-07-04] MEDS: SACUBITRIL-VALSARTAN 24mg/26mg TAB PO SCH (09:30)
[2021-07-04] MEDS: ALLOPURINOL 100 MG TAB PO SCH (09:30)
[2021-07-04] MEDS: ASPirin-EC 81 mg tab PO SCH (09:30)
[2021-07-04] MEDS: levoFLOXacin 500MG 100 ML IV SCH (09:31)
[2021-07-04] MEDS ORDERED: METOCLOPRAMIDE HCL 5MG/ml INJ 2ml VIAL IV PRN (09:45)
[2021-07-04] MEDS ORDERED: GLIMEPIRIDE 2 MG TAB PO ONE (09:45)
[2021-07-04] MEDS: FAMOTIDINE 20 MG TAB PO SCH (10:00)
[2021-07-04] MEDS ORDERED: PANTOPRAZOLE 40 MG/10 ML VIAL INJ IV SCH (10:00)
[2021-07-04] MEDS: BUMETANIDE 2.5mg/10ml (0.25 mg/ml) INJ IV SCH (18:20)
[2021-07-04 22:30] VITALS: BP 105/68
[2021-07-04 22:57] VITALS: BP 136/50
[2021-07-05] MEDS: IPRATROPIUM BROM 0.5 MG/2.5ML INH SOL NEB SCH ×6 (02:00→22:41)
[2021-07-05 02:50] VITALS: BP 136/50
[2021-07-05] MEDS: InsuLIN REG 1unit/0.01ml Soln (100units/ml) SC SCH ×3 (05:26→17:00)
[2021-07-05 05:27] VITALS: BP 125/47
[2021-07-05] MEDS: GLIMEPIRIDE 2 MG TAB PO SCH (05:32)
[2021-07-05] MEDS: ACCU-CHEK COMFORT CURVE STRIP VI SCH ×4 (05:32→22:52)
[2021-07-05] MEDS: BUMETANIDE 2.5mg/10ml (0.25 mg/ml) INJ IV SCH ×2 (05:32→18:00)
[2021-07-05 07:51] VITALS: BP 119/60
[2021-07-05 09:37] LABS: BUN/Creatinine Ratio 23.5
[2021-07-05] MEDS: ALLOPURINOL 100 MG TAB PO SCH (10:32)
[2021-07-05] MEDS: FAMOTIDINE 20 MG TAB PO SCH (10:32)
[2021-07-05] MEDS: SACUBITRIL-VALSARTAN 24mg/26mg TAB PO SCH (10:32)
[2021-07-05] MEDS: ASPirin-EC 81 mg tab PO SCH (10:32)
[2021-07-05] MEDS: RANOLAZINE ER 500 MG TAB PO SCH ×2 (10:32→22:52)
[2021-07-05] MEDS: levoFLOXacin 500MG 100 ML IV SCH (10:33)
[2021-07-05] MEDS: CARVEDILOL 3.125 MG TAB PO SCH ×2 (10:33→22:00)
[2021-07-05] MEDS: ENOXAPARIN SOD 120 MG/0.8 ML SYRINGE SC SCH (10:34)
[2021-07-05 11:41] VITALS: BP 115/53
[2021-07-05] MEDS: BUDESONIDE (INHALATION) 0.5 MG/2 ML NEB NEB SCH ×2 (16:09→22:41)
[2021-07-05 16:58] VITALS: BP 96/49
[2021-07-05] MEDS: LORazepam 0.5 MG TAB PO PRN (22:51)
[2021-07-05] MEDS: ATORVASTATIN 20 MG TAB PO SCH (22:52)
[2021-07-06] MEDS: InsuLIN REG 1unit/0.01ml Soln (100units/ml) SC SCH ×2 (00:52→06:33)
[2021-07-06] MEDS: IPRATROPIUM BROM 0.5 MG/2.5ML INH SOL NEB SCH ×2 (02:26→05:54)
[2021-07-06 05:00] VITALS: BP 106/52
[2021-07-06] MEDS: BUDESONIDE (INHALATION) 0.5 MG/2 ML NEB NEB SCH (05:54)
[2021-07-06] MEDS: GLIMEPIRIDE 2 MG TAB PO SCH (06:33)
[2021-07-06] MEDS: ACCU-CHEK COMFORT CURVE STRIP VI SCH (06:33)
[2021-07-06] MEDS: BUMETANIDE 2.5mg/10ml (0.25 mg/ml) INJ IV SCH (06:34)
[2021-07-06 08:00] VITALS: BP 122/58
[2021-07-06 09:00] VITALS: BP 122/78
[2021-07-06] MEDS: levoFLOXacin 500MG 100 ML IV SCH (09:57)
[2021-07-06] MEDS: CARVEDILOL 3.125 MG TAB PO SCH (10:02)
[2021-07-06] MEDS: FAMOTIDINE 20 MG TAB PO SCH (10:03)
[2021-07-06] MEDS: ASPirin-EC 81 mg tab PO SCH (10:03)
[2021-07-06] MEDS: RANOLAZINE ER 500 MG TAB PO SCH (10:04)
[2021-07-06] MEDS: SACUBITRIL-VALSARTAN 24mg/26mg TAB PO SCH (10:04)
[2021-07-06] MEDS: ALLOPURINOL 100 MG TAB PO SCH (10:04)
[2021-07-06] MEDS: ENOXAPARIN SOD 120 MG/0.8 ML SYRINGE SC SCH (10:06)
[2021-07-06] MEDS ORDERED: FURO1TAB31 PO (10:29)
== END 2021-07-06 13:35 | disposition home or self-care (01) | DRG 280 ==
LOC: ER 12:05 → EDBD 12:05 → OVERFLOW 17:20 → CENTRAL 21:14 → TELE-CENTR 07-04 03:29
PROVIDERS: ADMIT Hospitalist; ATTEND Internal Medicine
PROC: 5A09357 Assistance with Respiratory Ventilation, Less than 24 Consecutive Hours, Continuous Positive Airway Pressure (ICD-10-PCS; principal; 2021-07-04)
PROC: 5A09357 Assistance with Respiratory Ventilation, Less than 24 Consecutive Hours, Continuous Positive Airway Pressure (ICD-10-PCS; 2021-07-05)
DX: I21.4 Non-ST elevation (NSTEMI) myocardial infarction (principal); I50.43 Acute on chronic combined systolic (congestive) and diastolic (congestive) heart failure; J96.20 Acute and chronic respiratory failure, unspecified whether with hypoxia or hypercapnia; J18.9 Pneumonia, unspecified organism; J44.1 Chronic obstructive pulmonary disease with (acute) exacerbation; I13.0 Hypertensive heart and chronic kidney disease with heart failure and stage 1 through stage 4 chronic kidney disease, or unspecified chronic kidney disease; J44.0 Chronic obstructive pulmonary disease with (acute) lower respiratory infection; Z68.41 Body mass index [BMI] 40.0-44.9, adult; I27.21 Secondary pulmonary arterial hypertension; I50.82 Biventricular heart failure; N18.30 Chronic kidney disease, stage 3 unspecified; E11.65 Type 2 diabetes mellitus with hyperglycemia; J20.9 Acute bronchitis, unspecified; I25.5 Ischemic cardiomyopathy; E11.22 Type 2 diabetes mellitus with diabetic chronic kidney disease; E78.5 Hyperlipidemia, unspecified; K74.60 Unspecified cirrhosis of liver; M1A.9XX0 Chronic gout, unspecified, without tophus (tophi); E66.01 Morbid (severe) obesity due to excess calories; I25.10 Atherosclerotic heart disease of native coronary artery without angina pectoris; G47.30 Sleep apnea, unspecified; Z87.891 Personal history of nicotine dependence; Z95.1 Presence of aortocoronary bypass graft; Z91.19 Patient's noncompliance with other medical treatment and regimen; Z83.3 Family history of diabetes mellitus; Z82.49 Family history of ischemic heart disease and other diseases of the circulatory system; Z79.899 Other long term (current) drug therapy; Z88.0 Allergy status to penicillin; Z88.2 Allergy status to sulfonamides; Z88.8 Allergy status to other drugs, medicaments and biological substances
CPT/HCPCS: 36415; 36600; 71045; 80048; 80053; 80074; 82728; 82805; 82962; 83036; 83735; 83880; 84100; 84443; 84484; 84550; 85025; 85379; 85610; 85730; 87040; 87081; 87426; 93005; 94640; 94660; 96360; 96372; C9113; G0378; J1815; J1956

== ENCOUNTER 2022-11-05 11:42 | Inpatient (IN) | payer MEDICARE, BC ==
[~2022-11-05] VITALS: Ht 177.8 cm; Wt 129.8 kg
[~2022-11-05 11:42] MED LIST changes: +FURO1TAB31 PO
[2022-11-05 12:46] LABS: Basophils # (auto) 0.1 10 ^3/uL (0-0.2); Basophils % (auto) 0.8 % (0.0-2.0); Eosinophils # (auto) 0.4 10 ^3/uL (0-0.8); Eosinophils % (auto) 5.9 % (0.0-7.0); Hematocrit 28.5 % (41.0-53.0); Hemoglobin 9.2 g/dL (13.5-17.5); Lymphocytes # (auto) 1.3 10 ^3/uL (0.4-5.4); Lymphocytes % (auto) 19.8 % (10.0-50.0); Mean Corpuscular Hemoglobin 32.3 pg (28.0-32.0); Mean Corpuscular Hgb Conc. 32.4 g/dL (32.0-36.0); Mean Corpuscular Volume 99.7 fL (80.0-100.0); Monocytes # (auto) 0.6 10 ^3/uL (0-1.3); Monocytes % (auto) 8.2 % (0.0-12.0); Neutrophils # (auto) 4.4 10 ^3/uL (1.6-8.6); Neutrophils % (auto) 65.3 % (37.0-80.0); Nucleated Red Blood Cells % 0.1 %; Red Blood Cells 2.86 10^6/uL (4.5-5.90); Red Cell Distribution Width 15.6 % (11.8-14.3); White Blood Cell 6.8 10^3/uL (4.4-10.8)
[2022-11-05 12:56] LABS: INR 1.16 (0.9-1.15); Partial Thromboplastin Time 26.8 sec (24.6-33.4)
[2022-11-05 13:32] LABS: Calcium 9.2 mg/dL (8.5-10.1); Potassium 4.9 mmol/L (3.5-5.1)
[2022-11-05 13:40] LABS: Albumin 3.7 g/dL (3.4-5.0); BUN/Creatinine Ratio 29.1 (10.0-20.0); Bilirubin, Total 0.5 mg/dL (0.2-1.0); Magnesium 2.6 mg/dL (1.6-2.6); Total Protein 6.2 g/dL (6.4-8.2)
[2022-11-05] MEDS ORDERED: DexAMETHasone SOD PHOS 10MG/1ML VIAL INJ IV ONE (15:45)
[2022-11-05] MEDS ORDERED: ALBUTEROL SULF 2.5 MG/0.5ML(0.5%) NEB SOLN NEB ONE (15:45)
[2022-11-05] MEDS ORDERED: cefTRIAXone 1GM/50ML D5W 50 ML IV ONE (15:45)
[2022-11-05] MEDS ORDERED: AZITHROMYCIN 500MG/ 250ML 250 ML IV ONE (15:45)
[2022-11-05] MEDS ORDERED: FUROSEMIDE 100 MG/10ML VIAL IV ONE (15:45)
[2022-11-05] MEDS ORDERED: IPRATROPIUM BROM 0.5 MG/2.5ML INH SOL NEB ONE (15:45)
[2022-11-05] MEDS ORDERED: DEXTROSE (50%) 50ML SYRG IV PRN (17:45)
[2022-11-05] MEDS ORDERED: ACETAMINOPHEN 325 MG TAB PO PRN (17:45)
[2022-11-05] MEDS ORDERED: MORPHINE SULFATE INJ 2 MG/ml SYRG IV PRN (17:45)
[2022-11-05] MEDS ORDERED: NITROGLYCERIN 0.4 MG SL TAB SL PRN (17:45)
[2022-11-05 17:55] LABS: Urine Bacteria NONE SEEN /hpf (None Seen); Urine Blood Negative /uL (Negative); Urine WBC <1 /hpf (0 - 3)
[2022-11-05] MEDS ORDERED: IPRATROPIUM BROM 0.5 MG/2.5ML INH SOL NEB SCH (18:00)
[2022-11-05 18:03] VITALS: BP 91/57
[2022-11-05 18:39] LABS: Cholesterol 133 mg/dL (< 200)
[2022-11-05 18:42] LABS: HDL Cholesterol 35 mg/dL (40-59); LDL Cholesterol 78 mg/dL (< 100); Triglycerides 159 mg/dL (< 150)
[2022-11-05] MEDS: ALBUTEROL SULF 2.5 MG/0.5ML(0.5%) NEB SOLN NEB PRN ×2 (18:46→22:11)
[2022-11-05] MEDS: IPRATROPIUM BROM 0.5 MG/2.5ML INH SOL NEB SCH ×2 (18:46→22:11)
[2022-11-05] MEDS: ACCU-CHEK COMFORT CURVE STRIP VI SCH (22:03)
[2022-11-05] MEDS: SPIRONOLACTONE 25 MG TAB PO SCH (22:07)
[2022-11-05] MEDS: RANOLAZINE ER 500 MG TAB PO SCH (22:09)
[2022-11-05] MEDS: InsuLIN REG 1unit/0.01ml Soln (100units/ml) SC SCH (22:10)
[2022-11-06] MEDS: IPRATROPIUM BROM 0.5 MG/2.5ML INH SOL NEB SCH ×6 (02:51→22:41)
[2022-11-06] MEDS: ALBUTEROL SULF 2.5 MG/0.5ML(0.5%) NEB SOLN NEB PRN ×6 (02:51→22:41)
[2022-11-06] MEDS ORDERED: ALBUMIN 5% 250 ML IV ONE (06:00)
[2022-11-06 06:06] LABS: Basophils # (auto) 0 10 ^3/uL (0-0.2); Basophils % (auto) 0.1 % (0.0-2.0); Eosinophils # (auto) 0 10 ^3/uL (0-0.8); Eosinophils % (auto) 0.1 % (0.0-7.0); Hematocrit 28.2 % (41.0-53.0); Hemoglobin 9.2 g/dL (13.5-17.5); Lymphocytes # (auto) 0.6 10 ^3/uL (0.4-5.4); Lymphocytes % (auto) 11.3 % (10.0-50.0); Mean Corpuscular Hemoglobin 32.4 pg (28.0-32.0); Mean Corpuscular Hgb Conc. 32.7 g/dL (32.0-36.0); Mean Corpuscular Volume 99.3 fL (80.0-100.0); Monocytes # (auto) 0.1 10 ^3/uL (0-1.3); Neutrophils # (auto) 4.8 10 ^3/uL (1.6-8.6); Neutrophils % (auto) 86.5 % (37.0-80.0); Red Blood Cells 2.83 10^6/uL (4.5-5.90); Red Cell Distribution Width 15.2 % (11.8-14.3); White Blood Cell 5.5 10^3/uL (4.4-10.8)
[2022-11-06 06:19] LABS: Potassium 4.9 mmol/L (3.5-5.1)
[2022-11-06 06:27] LABS: Albumin 3.6 g/dL (3.4-5.0); BUN/Creatinine Ratio 28.7 (10.0-20.0); Bilirubin, Total 0.3 mg/dL (0.2-1.0); Calcium 9.5 mg/dL (8.5-10.1); Total Protein 6.8 g/dL (6.4-8.2)
[2022-11-06] MEDS: ACCU-CHEK COMFORT CURVE STRIP VI SCH ×4 (06:30→22:05)
[2022-11-06] MEDS: InsuLIN REG 1unit/0.01ml Soln (100units/ml) SC SCH ×4 (06:34→22:00)
[2022-11-06] MEDS: cefTRIAXone 1GM/50ML D5W 50 ML IV SCH (09:01)
[2022-11-06] MEDS: metOLazone 5 MG TAB PO SCH (10:00)
[2022-11-06] MEDS: PATIENTS OWN MEDICATION (Fenofibrate 160 MG) PO SCH (10:00)
[2022-11-06] MEDS: TAMSULOSIN HYDROCHLORIDE 0.4 MG CAP PO SCH (10:58)
[2022-11-06] MEDS: SPIRONOLACTONE 25 MG TAB PO SCH ×2 (10:59→21:57)
[2022-11-06] MEDS: ASPirin-EC 81 mg tab PO SCH (10:59)
[2022-11-06] MEDS: ENOXAPARIN SOD 30 MG/0.3 ML SYRINGE SC SCH (10:59)
[2022-11-06] MEDS: SACUBITRIL-VALSARTAN 24mg/26mg TAB PO SCH (11:10)
[2022-11-06] MEDS: RANOLAZINE ER 500 MG TAB PO SCH ×2 (11:10→21:57)
[2022-11-06] MEDS: AZITHROMYCIN 500MG/ 250ML 250 ML IV SCH (11:10)
[2022-11-06 11:59] LABS: Protein, Urine 8.1 mg/dL (0.0-11.9)
[2022-11-06 17:00] VITALS: BP 99/47
[2022-11-06] MEDS: BUMETANIDE 2.5mg/10ml (0.25 mg/ml) INJ IV SCH (19:12)
[2022-11-06 20:00] VITALS: BP 116/40
[2022-11-06 22:00] VITALS: BP 116/40
[2022-11-06] MEDS ORDERED: DOCUSATE SOD 100 MG CAP PO PRN (22:15)
[2022-11-07 05:00] VITALS: BP 94/50
[2022-11-07] MEDS: BUMETANIDE 2.5mg/10ml (0.25 mg/ml) INJ IV SCH ×2 (05:18→18:00)
[2022-11-07] MEDS: ACCU-CHEK COMFORT CURVE STRIP VI SCH ×4 (06:16→21:57)
[2022-11-07] MEDS: InsuLIN REG 1unit/0.01ml Soln (100units/ml) SC SCH ×4 (06:16→21:58)
[2022-11-07] MEDS: ALBUTEROL SULF 2.5 MG/0.5ML(0.5%) NEB SOLN NEB PRN ×3 (06:28→13:49)
[2022-11-07] MEDS: IPRATROPIUM BROM 0.5 MG/2.5ML INH SOL NEB SCH ×5 (06:28→22:07)
[2022-11-07 06:42] LABS: Basophils # (auto) 0 10 ^3/uL (0-0.2); Basophils % (auto) 0.4 % (0.0-2.0); Eosinophils # (auto) 0.1 10 ^3/uL (0-0.8); Hematocrit 29.4 % (41.0-53.0); Hemoglobin 9.7 g/dL (13.5-17.5); Lymphocytes # (auto) 2.1 10 ^3/uL (0.4-5.4); Lymphocytes % (auto) 27.2 % (10.0-50.0); Mean Corpuscular Hemoglobin 32.9 pg (28.0-32.0); Mean Corpuscular Hgb Conc. 32.9 g/dL (32.0-36.0); Mean Corpuscular Volume 100.1 fL (80.0-100.0); Monocytes # (auto) 0.7 10 ^3/uL (0-1.3); Monocytes % (auto) 8.5 % (0.0-12.0); Neutrophils # (auto) 4.9 10 ^3/uL (1.6-8.6); Neutrophils % (auto) 62.9 % (37.0-80.0); Nucleated Red Blood Cells % 0.1 %; Red Blood Cells 2.94 10^6/uL (4.5-5.90); Red Cell Distribution Width 15.5 % (11.8-14.3); White Blood Cell 7.8 10^3/uL (4.4-10.8)
[2022-11-07 06:45] LABS: BUN/Creatinine Ratio 27.7 (10.0-20.0); Calcium 9.9 mg/dL (8.5-10.1); Magnesium 2.8 mg/dL (1.6-2.6); Potassium 4.8 mmol/L (3.5-5.1)
[2022-11-07 09:00] VITALS: BP 110/46
[2022-11-07] MEDS: SPIRONOLACTONE 25 MG TAB PO SCH ×2 (09:36→21:57)
[2022-11-07] MEDS: ASPirin-EC 81 mg tab PO SCH (09:36)
[2022-11-07] MEDS: RANOLAZINE ER 500 MG TAB PO SCH ×2 (09:37→21:57)
[2022-11-07] MEDS: TAMSULOSIN HYDROCHLORIDE 0.4 MG CAP PO SCH (09:37)
[2022-11-07] MEDS: metOLazone 5 MG TAB PO SCH (09:37)
[2022-11-07] MEDS: cefTRIAXone 1GM/50ML D5W 50 ML IV SCH (09:37)
[2022-11-07] MEDS: SACUBITRIL-VALSARTAN 24mg/26mg TAB PO SCH (09:37)
[2022-11-07] MEDS: PATIENTS OWN MEDICATION (Fenofibrate 160 MG) PO SCH (09:37)
[2022-11-07] MEDS: ENOXAPARIN SOD 30 MG/0.3 ML SYRINGE SC SCH (09:37)
[2022-11-07] MEDS: AZITHROMYCIN 500MG/ 250ML 250 ML IV SCH (11:05)
[2022-11-07 13:00] VITALS: BP 107/31
[2022-11-07 17:00] VITALS: BP 115/43
[2022-11-07 21:52] LABS: Urine Bacteria FEW /hpf (None Seen); Urine Blood Negative /uL (Negative); Urine Specific Gravity 1.007 (1.001-1.035); Urine WBC <1 /hpf (0 - 3)
[2022-11-07 22:00] VITALS: BP 109/50
[2022-11-08] MEDS: BUMETANIDE 2.5mg/10ml (0.25 mg/ml) INJ IV SCH ×2 (06:00→18:55)
[2022-11-08] MEDS: IPRATROPIUM BROM 0.5 MG/2.5ML INH SOL NEB SCH ×5 (06:15→22:22)
[2022-11-08] MEDS: InsuLIN REG 1unit/0.01ml Soln (100units/ml) SC SCH ×4 (06:24→22:00)
[2022-11-08] MEDS: ACCU-CHEK COMFORT CURVE STRIP VI SCH ×4 (06:24→21:44)
[2022-11-08 06:50] LABS: BUN/Creatinine Ratio 29.5 (10.0-20.0); Calcium 9.4 mg/dL (8.5-10.1); Potassium 4.8 mmol/L (3.5-5.1)
[2022-11-08 09:00] VITALS: BP 114/36
[2022-11-08] MEDS: PATIENTS OWN MEDICATION (Fenofibrate 160 MG) PO SCH (09:25)
[2022-11-08] MEDS: cefTRIAXone 1GM/50ML D5W 50 ML IV SCH (09:33)
[2022-11-08] MEDS: RANOLAZINE ER 500 MG TAB PO SCH ×2 (09:33→21:43)
[2022-11-08] MEDS: ENOXAPARIN SOD 30 MG/0.3 ML SYRINGE SC SCH (09:33)
[2022-11-08] MEDS: TAMSULOSIN HYDROCHLORIDE 0.4 MG CAP PO SCH (09:33)
[2022-11-08] MEDS: metOLazone 5 MG TAB PO SCH (09:34)
[2022-11-08] MEDS: SPIRONOLACTONE 25 MG TAB PO SCH ×2 (09:34→21:43)
[2022-11-08] MEDS: ASPirin-EC 81 mg tab PO SCH (09:34)
[2022-11-08] MEDS: SACUBITRIL-VALSARTAN 24mg/26mg TAB PO SCH (09:34)
[2022-11-08] MEDS: ALBUTEROL SULF 2.5 MG/0.5ML(0.5%) NEB SOLN NEB PRN ×2 (10:16→14:29)
[2022-11-08] MEDS: AZITHROMYCIN 500MG/ 250ML 250 ML IV SCH (10:49)
[2022-11-08 13:00] VITALS: BP 103/40
[2022-11-08 17:00] VITALS: BP 105/38
[2022-11-09 00:11] VITALS: BP 101/45
[2022-11-09 04:07] VITALS: BP 112/36
[2022-11-09] MEDS: BUMETANIDE 2.5mg/10ml (0.25 mg/ml) INJ IV SCH ×2 (06:00→17:49)
[2022-11-09] MEDS: IPRATROPIUM BROM 0.5 MG/2.5ML INH SOL NEB SCH ×5 (06:21→22:22)
[2022-11-09] MEDS: ALBUTEROL SULF 2.5 MG/0.5ML(0.5%) NEB SOLN NEB PRN ×5 (06:21→22:22)
[2022-11-09] MEDS: ACCU-CHEK COMFORT CURVE STRIP VI SCH ×4 (06:23→21:57)
[2022-11-09] MEDS: InsuLIN REG 1unit/0.01ml Soln (100units/ml) SC SCH ×4 (06:23→22:15)
[2022-11-09 06:32] LABS: BUN/Creatinine Ratio 30.2 (10.0-20.0); Calcium 9.4 mg/dL (8.5-10.1); Magnesium 2.5 mg/dL (1.6-2.6); Potassium 4.9 mmol/L (3.5-5.1)
[2022-11-09 09:00] VITALS: BP 113/40
[2022-11-09] MEDS: PATIENTS OWN MEDICATION (Fenofibrate 160 MG) PO SCH (10:00)
[2022-11-09] MEDS: cefTRIAXone 1GM/50ML D5W 50 ML IV SCH (10:31)
[2022-11-09] MEDS: SACUBITRIL-VALSARTAN 24mg/26mg TAB PO SCH (10:34)
[2022-11-09] MEDS: SPIRONOLACTONE 25 MG TAB PO SCH ×2 (10:34→21:57)
[2022-11-09] MEDS: TAMSULOSIN HYDROCHLORIDE 0.4 MG CAP PO SCH (10:35)
[2022-11-09] MEDS: ASPirin-EC 81 mg tab PO SCH (10:35)
[2022-11-09] MEDS: metOLazone 5 MG TAB PO SCH (10:38)
[2022-11-09] MEDS: ENOXAPARIN SOD 30 MG/0.3 ML SYRINGE SC SCH (10:44)
[2022-11-09] MEDS: RANOLAZINE ER 500 MG TAB PO SCH ×2 (10:48→21:57)
[2022-11-09] MEDS: AZITHROMYCIN 500MG/ 250ML 250 ML IV SCH (11:59)
[2022-11-09 12:59] VITALS: BP 121/61
[2022-11-09 16:31] VITALS: BP 117/52
[2022-11-09 22:00] VITALS: BP 111/35
[2022-11-10 00:38] VITALS: BP 120/39
[2022-11-10 05:00] VITALS: BP 122/45
[2022-11-10] MEDS: IPRATROPIUM BROM 0.5 MG/2.5ML INH SOL NEB SCH ×3 (06:30→13:37)
[2022-11-10] MEDS: ALBUTEROL SULF 2.5 MG/0.5ML(0.5%) NEB SOLN NEB PRN ×3 (06:30→13:37)
[2022-11-10] MEDS: BUMETANIDE 2.5mg/10ml (0.25 mg/ml) INJ IV SCH (06:44)
[2022-11-10] MEDS: ACCU-CHEK COMFORT CURVE STRIP VI SCH ×2 (06:44→11:55)
[2022-11-10] MEDS: InsuLIN REG 1unit/0.01ml Soln (100units/ml) SC SCH ×2 (06:49→11:56)
[2022-11-10] MEDS: ASPirin-EC 81 mg tab PO SCH (08:30)
[2022-11-10] MEDS: RANOLAZINE ER 500 MG TAB PO SCH (08:30)
[2022-11-10] MEDS: cefTRIAXone 1GM/50ML D5W 50 ML IV SCH (08:31)
[2022-11-10] MEDS: SACUBITRIL-VALSARTAN 24mg/26mg TAB PO SCH (08:31)
[2022-11-10] MEDS: TAMSULOSIN HYDROCHLORIDE 0.4 MG CAP PO SCH (08:31)
[2022-11-10] MEDS: SPIRONOLACTONE 25 MG TAB PO SCH (08:31)
[2022-11-10] MEDS: metOLazone 5 MG TAB PO SCH (08:31)
[2022-11-10 09:16] VITALS: BP 118/48
[2022-11-10] MEDS: PATIENTS OWN MEDICATION (Fenofibrate 160 MG) PO SCH (10:00)
[2022-11-10] MEDS ORDERED: ENOXAPARIN SOD 40 MG/0.4 ML SYRINGE SC SCH (10:00)
[2022-11-10] MEDS: AZITHROMYCIN 500MG/ 250ML 250 ML IV SCH (10:36)
[2022-11-10 11:05] VITALS: BP 121/58
[2022-11-10 13:05] VITALS: BP 101/57
== END 2022-11-10 15:20 | DRG 177 ==
LOC: ER 11:42 → EDBD 11:42 → EDSEX 11:42 → TELE 17:42 → TELE-WESTW 11-06 17:57
PROVIDERS: ADMIT Nurse Practitioner Family; ATTEND Internal Medicine
DX: J69.0 Pneumonitis due to inhalation of food and vomit (principal); I50.43 Acute on chronic combined systolic (congestive) and diastolic (congestive) heart failure; J96.20 Acute and chronic respiratory failure, unspecified whether with hypoxia or hypercapnia; I13.0 Hypertensive heart and chronic kidney disease with heart failure and stage 1 through stage 4 chronic kidney disease, or unspecified chronic kidney disease; J44.1 Chronic obstructive pulmonary disease with (acute) exacerbation; E46 Unspecified protein-calorie malnutrition; N18.4 Chronic kidney disease, stage 4 (severe); N17.9 Acute kidney failure, unspecified; J44.0 Chronic obstructive pulmonary disease with (acute) lower respiratory infection; Z68.41 Body mass index [BMI] 40.0-44.9, adult; Z20.822 Contact with and (suspected) exposure to COVID-19; E11.22 Type 2 diabetes mellitus with diabetic chronic kidney disease; E66.01 Morbid (severe) obesity due to excess calories; I08.3 Combined rheumatic disorders of mitral, aortic and tricuspid valves; I25.119 Atherosclerotic heart disease of native coronary artery with unspecified angina pectoris; E78.5 Hyperlipidemia, unspecified; I25.5 Ischemic cardiomyopathy; Z99.81 Dependence on supplemental oxygen; Z82.49 Family history of ischemic heart disease and other diseases of the circulatory system; Z88.0 Allergy status to penicillin; Z83.3 Family history of diabetes mellitus; Z95.1 Presence of aortocoronary bypass graft; I25.2 Old myocardial infarction; Z88.2 Allergy status to sulfonamides; Z88.8 Allergy status to other drugs, medicaments and biological substances
CPT/HCPCS: 36415; 71045; 71250; 76536; 80048; 80053; 80061; 81001; 82570; 82962; 83036; 83735; 83880; 83935; 84156; 84300; 84443; 84484; 85025; 85610; 85730; 87081; 87426; 93005; 93306; 94640; 96374; 96375; G0378; J0696; J1100; J1815

== ENCOUNTER 2022-11-18 23:13 | Emergency (ER) | payer MEDICARE, BC ==
[~2022-11-18] VITALS: Ht 185.4 cm; Wt 127.0 kg
[~2022-11-18 23:13] MED LIST changes: -ALBU1.257 IN; +ALBU1.258 IN; -ALFU10TA33 PO; +ALFU1TAB15 PO
[2022-11-18] MEDS ORDERED: EPINEPHrine HCL 1 MG/10 ML SYRG IV ONE (23:14)
[2022-11-18] MEDS ORDERED: SODIUM CHLORIDE 0.9% 500 ML IV ONE (23:45)
[2022-11-18 23:55] LABS: Basophils # (auto) 0.1 10 ^3/uL (0-0.2); Basophils % (auto) 0.3 % (0.0-2.0); Eosinophils # (auto) 0 10 ^3/uL (0-0.8); Eosinophils % (auto) 0.1 % (0.0-7.0); Hematocrit 28.1 % (41.0-53.0); Hemoglobin 9.1 g/dL (13.5-17.5); Lymphocytes # (auto) 1.2 10 ^3/uL (0.4-5.4); Lymphocytes % (auto) 6.7 % (10.0-50.0); Mean Corpuscular Hemoglobin 31.4 pg (28.0-32.0); Mean Corpuscular Hgb Conc. 32.3 g/dL (32.0-36.0); Mean Corpuscular Volume 97.3 fL (80.0-100.0); Monocytes # (auto) 1.9 10 ^3/uL (0-1.3); Monocytes % (auto) 10.7 % (0.0-12.0); Neutrophils # (auto) 14.5 10 ^3/uL (1.6-8.6); Neutrophils % (auto) 82.2 % (37.0-80.0); Red Blood Cells 2.89 10^6/uL (4.5-5.90); Red Cell Distribution Width 14.6 % (11.8-14.3); White Blood Cell 17.7 10^3/uL (4.4-10.8)
[2022-11-19 00:10] LABS: INR 1.26 (0.9-1.15); Partial Thromboplastin Time 31.3 sec (24.6-33.4)
[2022-11-19] MEDS ORDERED: DexAMETHasone SOD PHOS 10MG/1ML VIAL INJ IV ONE (00:15)
[2022-11-19] MEDS ORDERED: cefTRIAXone 1GM/50ML D5W 50 ML IV ONE (00:15)
[2022-11-19] MEDS ORDERED: VANCOMYCIN 1GM/250ML 250 ML IV ONE (00:15)
[2022-11-19] MEDS ORDERED: LACTATED RINGER S IV ONE (00:15)
[2022-11-19 00:17] LABS: Albumin 2.7 g/dL (3.4-5.0); Lactic Acid w/Reflex 3.2 mmol/L (0.4-2.0); Magnesium 2.4 mg/dL (1.6-2.6)
[2022-11-19 00:20] LABS: Bilirubin, Total 0.5 mg/dL (0.2-1.0); Total Protein 6.8 g/dL (6.4-8.2)
[2022-11-19] MEDS ORDERED: HEPARIN DRIP/D5W 100UNITS/ML 250 ML IV SCH (02:30)
[2022-11-19] MEDS ORDERED: HEPARIN SODIUM (PORCINE) 5000 UNITS/ML 1ML VIAL IV ONE (02:30)
[2022-11-19] MEDS ORDERED: NOREPINEPHRINE 8 MG/250ML KIT 250 ML IV SCH (03:30)
[2022-11-19] MEDS ORDERED: NOREPINEPHRINE 8 MG/250ML KIT 250 ML IV ONE (03:32)
[2022-11-19 04:05] VITALS: BP 87/64
[2022-11-19] MEDS ORDERED: ATROPINE SULF 0.5 MG/5ML SYR ONE (04:06)
[2022-11-19] MEDS ORDERED: ATROPINE SULF 1 MG/10ml SYR IV ONE ×2 (04:15)
== END 2022-11-19 08:08 ==
LOC: ER 23:13 → EDBD 23:13 → ER 11-19 08:08
DX: R55 Syncope and collapse (principal); I21.4 Non-ST elevation (NSTEMI) myocardial infarction; R77.8 Other specified abnormalities of plasma proteins; D72.829 Elevated white blood cell count, unspecified; R06.03 Acute respiratory distress; E11.22 Type 2 diabetes mellitus with diabetic chronic kidney disease; I13.0 Hypertensive heart and chronic kidney disease with heart failure and stage 1 through stage 4 chronic kidney disease, or unspecified chronic kidney disease; N18.9 Chronic kidney disease, unspecified; I50.9 Heart failure, unspecified; J44.9 Chronic obstructive pulmonary disease, unspecified; E78.5 Hyperlipidemia, unspecified; Z88.0 Allergy status to penicillin; Z88.2 Allergy status to sulfonamides
CPT/HCPCS: 36415; 71045; 80053; 83605; 83735; 83880; 84484; 85025; 85610; 85730; 87040; 93005; 96361; 96365; 96366; 96367; 96368; 96375; 99291; J0171; J0461; J0696; J1100; J1644; J3370; J7040